=== PATIENT | female | born 1955 | race Caucasian/White ===

== ENCOUNTER → 2020-06-17 | Outpatient (CLI) | payer BC ==
[~2020-06-17] MED LIST: AMLO-186 PO; AMOX1TAB61 PO; ATOR40TA59 PO; BUPR150T21 PO; CETI10TA16 PO; CITA10TA8 PO; OXYC1TAB15 PO; PANT40TA77 PO
--- NOTE | 2020-06-17 09:50 | KCIC ---
EXAM: Left thumb, 3 views. HISTORY: Cellulitis. Dogbite. COMPARISON: None. FINDINGS: 3 views of the left thumb are obtained. There is no fracture, dislocation or subluxation. T here is mild first carpometacarpal and first interphalangeal joint spurring. There is moderate to sev ere second distal interphalangeal joint spurring with a chronic fragmented osteophyte along the slaughter r aspect of the joint space. There is moderate fifth distal individual joint spurring. There is some soft tissue swelling. No foreign body is seen. IMPRESSION: 1. Left thumb soft tissue swelling. No foreign body or acute osseous finding is seen. 2. 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 Electronically signed by: Agustina Siu MD (06/17/2020 9:47 AM) [id number]
== END ==
LOC: KCIC 09:27
PROVIDERS: ATTEND Family Medicine
DX: M19.042 Primary osteoarthritis, left hand (principal); L03.012 Cellulitis of left finger
CPT/HCPCS: 73140

== ENCOUNTER 2020-06-18 09:06 | Inpatient (IN) | payer BC, MEDICARE ==
[~2020-06-18] VITALS: Ht 157.5 cm; Wt 59.0 kg
[2020-06-18] MEDS ORDERED: PIPERACILLIN/TAZOBACTAM 3.375 GM in IV NORMAL SALINE 50ML 50 ML IV ONE (11:45)
--- NOTE | 2020-06-18 12:28 | ED.ADGEN ---
Past Medical History Past Medical History: Anxiety, Diabetes-Type II, Hypertension Additional Past Medical Histor: elevated cholesterol Past Surgical History: Cancer Surgery, Hysterectomy Additional Past Surgical Histo: breast surgery for cancer Smoking Status: Never Smoker Alcohol Use: None General Adult EDM: Chief Complaint: ANIMAL BITE HPI: HPI: Patient is a 64-year-old female who presents to the emergency room complaining of infection to her left thumb. Patient was bitten by a dog last Wednesday. At that time she was started on clindamycin. Since that time she has received 3 shots of Rocephin. She continues to have significant swelling and redness. She denies any known fever. She is able to move the thumb but it is difficult due to swelling and pain. Tetanus was updated. Patient was seen in clinic this morning who sent her here for admission. Review of Systems: Review of Systems: Complete ROS is negative unless otherwise documented in HPI Current Medications: Current Medications Medications (Trade) Dose Ordered Sig/Bnoy Start Time Stop Time Status Last Admin Dose Admin Piperacillin Sod/ Tazobactam Sod 3.375 gm/Sodium Chloride 50 ml @ 100 mls/hr 1X ONCE 06/18/20 11:45 06/18/20 12:39 DC 06/18/20 12:53 100 MLS/HR Allergies: Allergies: Allergies Coded Allergies Type Severity Reaction Last Updated Verified No Known Drug Allergies 06/18/20 No Physical Exam: PE: General: Awake, alert, NAD. Well Nourished, well hydrated. Cooperative HEENT: Atraumatic, EOMI, PERRL, airway patent, moist oral mucosa Neck: Supple, trachea midline Respiratory: CTA bilaterally, normal effort, no wheezing/crackles CV: RRR, no murmur, cap refill <2 GI: Soft, nondistended, nontender, no masses MSK: Left hand: Thumb with small wound and surrounding erythema and significant swelling, no flexor tendon tenderness, streaking up hand and wrist Skin: Warm, dry, intact Neuro: A&O x3, speech NL, sensory and motor grossly intact, no focal deficits Psych: Normal affect, normal mood, not suicidal or homicidal Current Patient Data: Labs: Laboratory Tests Test 06/18/20 12:45 White Blood Count 7.5 x10^3/uL (4.0-11.0) Red Blood Count 4.03 x10^6/uL (3.50-5.40) Hemoglobin 12.2 g/dL (12.0-15.5) Hematocrit 36.4 % (36.0-47.0) Mean Corpuscular Volume 90 fL (79-100) Mean Corpuscular Hemoglobin 30 pg (25-35) Mean Corpuscular Hemoglobin Concent 33 g/dL (31-37) Red Cell Distribution Width 12.9 % (11.5-14.5) Platelet Count 349 x10^3/uL (140-400) Neutrophils (%) (Auto) 70 % (31-73) Lymphocytes (%) (Auto) 20 % (24-48) L Monocytes (%) (Auto) 5 % (0-9) Eosinophils (%) (Auto) 4 % (0-3) H Basophils (%) (Auto) 1 % (0-3) Neutrophils # (Auto) 5.3 x10^3/uL (1.8-7.7) Lymphocytes # (Auto) 1.5 x10^3/uL (1.0-4.8) Monocytes # (Auto) 0.4 x10^3/uL (0.0-1.1) Eosinophils # (Auto) 0.3 x10^3/uL (0.0-0.7) Basophils # (Auto) 0.0 x10^3/uL (0.0-0.2) Sodium Level 141 mmol/L (136-145) Potassium Level 3.8 mmol/L (3.5-5.1) Chloride Level 104 mmol/L (98-107) Carbon Dioxide Level 27 mmol/L (21-32) Anion Gap 10 (6-14) Blood Urea Nitrogen 10 mg/dL (7-20) Creatinine 0.8 mg/dL (0.6-1.0) Estimated GFR (Cockcroft-Gault) 72.0 BUN/Creatinine Ratio 13 (6-20) Glucose Level 106 mg/dL (70-99) H Calcium Level 9.3 mg/dL (8.5-10.1) Total Bilirubin 0.7 mg/dL (0.2-1.0) Aspartate Amino Transferase (AST) 25 U/L (15-37) Alanine Aminotransferase (ALT) 42 U/L (14-59) Alkaline Phosphatase 76 U/L (46-116) C-Reactive Protein, Quantitative 96.3 mg/L (0-3.3) H Total Protein 7.2 g/dL (6.4-8.2) Albumin 3.7 g/dL (3.4-5.0) Albumin/Globulin Ratio 1.1 (1.0-1.7) Laboratory Tests 06/18/20 12:45 Laboratory Tests 06/18/20 12:45 Vital Signs: Vital Signs Date Time Temp Pulse Resp B/P (MAP) Pulse Ox O2 Delivery O2 Flow Rate FiO2 06/18/20 13:30 88 20 141/89 (106) 100 Room Air 06/18/20 11:47 97.8 97.8 EKG: EKG: [] Heart Score: Risk Factors: Risk Factors: DM, Current or recent (<one month) smoker, HTN, HLP, family history of CAD, obesity. Risk Scores: Score 0 - 3: 2.5% MACE over next 6 weeks - Discharge Home Score 4 - 6: 20.3% MACE over next 6 weeks - Admit for Clinical Observation Score 7 - 10: 72.7% MACE over next 6 weeks - Early Invasive Strategies Radiology/Procedures: Radiology/Procedures: [] Course & Med Decision Making: Course & Med Decision Making Pertinent Labs and Imaging studies reviewed. (See chart for details) Patient 64-year-old female presents to the emergency room with a finger infection from a dog bite. Tetanus was updated and patient has been being treated with outpatient antibiotics which have been unsuccessful. Dr. Gracia the on-call orthopedic surgeon will be consulted. Patient will be placed on Zosyn. She will need admission for IV antibiotics and possible drainage. Dragon Disclaimer: Dragon Disclaimer: This electronic medical record was generated, in whole or in part, using a voice recognition dictation system. Departure Departure Impression: Primary Impression: Dog bite of left thumb with infection Disposition: ADMITTED INPT THIS HOSP Condition: STABLE Referrals: UNKNOWN PCP NAME (PCP) NUBIA FERNANDEZ MD Jun 18, 2020 12:28
[2020-06-18 13:04] LABS: BASO % 1 % (0-3); EOS # 0.3 x10^3/uL (0.0-0.7); EOS % 4 % (0-3); HEMATOCRIT 36.4 % (36.0-47.0); HEMOGLOBIN 12.2 g/dL (12.0-15.5); LYMPH # 1.5 x10^3/uL (1.0-4.8); LYMPH % 20 % (24-48); MEAN CORPUSCULAR HEMOGLOBIN 30 pg (25-35); MEAN CORPUSCULAR HGB CONC 33 g/dL (31-37); MEAN CORPUSCULAR VOLUME 90 fL (79-100); MONO # 0.4 x10^3/uL (0.0-1.1); MONO % 5 % (0-9); NEUT # 5.3 x10^3/uL (1.8-7.7); NEUT % 70 % (31-73); PLATELET COUNT 349 x10^3/uL (140-400); RED BLOOD COUNT 4.03 x10^6/uL (3.50-5.40); RED CELL DISTRIBUTION WIDTH 12.9 % (11.5-14.5); WHITE BLOOD COUNT 7.5 x10^3/uL (4.0-11.0)
[2020-06-18 13:14] LABS: CALCIUM 9.3 mg/dL (8.5-10.1); CREATININE 0.8 mg/dL (0.6-1.0)
[2020-06-18 13:15] LABS: POTASSIUM 3.8 mmol/L (3.5-5.1)
[2020-06-18 13:21] LABS: ALBUMIN 3.7 g/dL (3.4-5.0); ALBUMIN/GLOBULIN RATIO 1.1 (1.0-1.7); TOTAL BILIRUBIN 0.7 mg/dL (0.2-1.0); TOTAL PROTEIN 7.2 g/dL (6.4-8.2)
--- NOTE | 2020-06-18 13:55 | PDOC1 ---
History and Physical Date of Admission Date of Admission DATE: 06/18/20 TIME: 13:53 Identification/Chief Complaint Chief Complaint Left thumb pain Source Source: Patient History of Present Illness History of Present Illness Ms Gibbons is a 64-year-old female w/ PMHx anxiety, DM2, HTN, HLD, breast ca s/p surgical resection who presents to the emergency room complaining of infection to her left thumb. Patient was bitten by a dog last Wednesday06/14/20. At that time she was started on clindamycin. Since that time she has received 3 shots of Rocephin while taking clindamycin. She continues to have significant swelling and redness. She denies any known fever. She is able to move the thumb but it is difficult due to swelling and pain. Tetanus was updated. Patient was seen in clinic this morning who sent her here for admission. WBC 7.5, Hb 12.2, platelets 349, NA 141, K3.8, BUN 10, CR 0.8, glucose 106, CRP 96.3. Admitted for further care Past Medical History Cardiovascular: HTN, Hyperlipidemia Endocrine: Diabetes Past Surgical History Past Surgical History: Other (Lumpectomy) Family History Family History: Diabetes, Hypertension Social History Smoke: No ALCOHOL: none Current Problem List Problem List Problems Medical Problems: (1) Dog bite of left thumb with infection Status: Acute Current Medications Current Medications Current Medications Piperacillin Sod/ Tazobactam Sod 3.375 gm/Sodium Chloride 50 ml @ 100 mls/hr 1X ONCE IV Last administered on 06/18/20at 12:53; Start 06/18/20 at 11:45; Stop 06/18/20 at 12:39; Status DC Allergies Allergies: Coded Allergies: No Known Drug Allergies (Unverified , 06/18/20) ROS General: YES: Fatigue, Malaise; No: Chills, Night Sweats, Appetite, Other PSYCHOLOGICAL ROS: No: Anxiety, Behavioral Disorder, Concentration difficultie, Decreased libido, Depression, Disorientation, Hallucinations, Hostility, Irritablity, Memory difficulties, Mood Swings, Obsessive thoughts, Physical abuse, Sexual abuse, Sleep disturbances, Suicidal ideation, Other Eyes: No Blurry vision, No Decreased vision, No Double vision, No Dry eyes, No Excessive tearing, No Eye Pain, No Itchy Eyes, No Loss of vision, No Photophobia, No Scotomata, No Uses contacts, No Uses glasses, No Other HEENT: No: Heacaches, Visual Changes, Hearing change, Nasal congestion, Nasal discharge, Oral lesions, Sinus pain, Sore Throat, Epistaxis, Sneezing, Snoring, Tinnitus, Vertigo, Vocal changes, Other ALLERGY AND IMMUNOLOGY: No: Hives, Insect Bite Sensitivity, Itchy/Watery Eyes, Nasal Congestion, Post Nasal Drip, Seasonal Allergies, Other Hematological and Lymphatic: No: Bleeding Problems, Blood Clots, Blood Transfusions, Brusing, Night Sweats, Pallor, Swollen Lymph Nodes, Other ENDOCRINE: No: Breast Changes, Galactorrhea, Hair Pattern Changes, Hot Flashes, Malaise/lethargy, Mood Swings, Palpitations, Polydipsia/polyuria, Skin Changes, Temperature Intolerance, Unexpected Weight Changes, Other Breast: No New/Changing Breast Lumps, No Nipple changes, No Nipple discharge, No Other Respiratory: No: Cough, Hemoptysis, Orthopnea, Pleuritic Pain, Shortness of breath, SOB with excertion, Sputum Changes, Stridor, Tachypnea, Wheezing, Other Cardiovascular: No Chest Pain, No Palpitations, No Orthopnea, No Paroxysmal Noc. Dyspnea, No Edema, No Lt Headedness, No Other Gastrointestinal: No Nausea, No Vomiting, No Abdominal Pain, No Diarrhea, No Constipation, No Melena, No Hematochezia, No Other Genitourinary: No Dysuria, No Frequency, No Incontinence, No Hematuria, No Retention, No Discharge, No Urgency, No Pain, No Flank Pain, No Other, No , No , No , No , No , No , No Musculoskeletal: Yes Joint Pain, Yes Joint Stiffness, Yes Joint Swelling; No Gait Disturbance, No Muscle Pain, No Muscular Weakness, No Pain In:, No Swelling In:, No Other Neurological: No Behavorial Changes, No Bowel/Bladder ControlChng, No Confusion, No Dizziness, No Gait Disturbance, No Headaches, No Impaired Coord/balance, No Memory Loss, No Numbness/Tingling, No Seizures, No Speech Problems, No Tremors, No Visual Changes, No Weakness, No Other Skin: Yes Rash, Yes Skin Lesion Changes; No Dry Skin, No Eczema, No Hair Changes, No Lumps, No Mole Changes, No Mottling, No Nail Changes, No Pruritus, No Other, No Acne Physical Exam General: Alert, Oriented X3, Cooperative, mild distress HEENT: Atraumatic, PERRLA, EOMI, Mucous membr. moist/pink Lungs: Clear to auscultation, Normal air movement Heart: S1S2, RRR, no thrills, no rubs, no gallops, no murmurs Abdomen: Normal bowel sounds, Soft, No tenderness, No hepatosplenomegaly, No masses Rectal Exam: not examined Extremities: No clubbing, No cyanosis, Normal pulses, Other (left thumb swollen, red, dorsum with lesion) Skin: No rashes, No breakdown, No significant lesion Neuro: Normal gait, Normal speech, Strength at 5/5 X4 ext, Normal tone, Sensation intact, Cranial nerves 3-12 NL, Reflexes 2+ Psych/Mental Status: Mental status NL, Mood NL Vitals Vitals Vital Signs Date Time Temp Pulse Resp B/P (MAP) Pulse Ox O2 Delivery O2 Flow Rate FiO2 06/18/20 11:47 97.8 92 16 159/72 (101) Room Air 97.8 Labs Labs Laboratory Tests Test 06/18/20 12:45 White Blood Count 7.5 x10^3/uL (4.0-11.0) Red Blood Count 4.03 x10^6/uL (3.50-5.40) Hemoglobin 12.2 g/dL (12.0-15.5) Hematocrit 36.4 % (36.0-47.0) Mean Corpuscular Volume 90 fL (79-100) Mean Corpuscular Hemoglobin 30 pg (25-35) Mean Corpuscular Hemoglobin Concent 33 g/dL (31-37) Red Cell Distribution Width 12.9 % (11.5-14.5) Platelet Count 349 x10^3/uL (140-400) Neutrophils (%) (Auto) 70 % (31-73) Lymphocytes (%) (Auto) 20 % (24-48) Monocytes (%) (Auto) 5 % (0-9) Eosinophils (%) (Auto) 4 % (0-3) Basophils (%) (Auto) 1 % (0-3) Neutrophils # (Auto) 5.3 x10^3/uL (1.8-7.7) Lymphocytes # (Auto) 1.5 x10^3/uL (1.0-4.8) Monocytes # (Auto) 0.4 x10^3/uL (0.0-1.1) Eosinophils # (Auto) 0.3 x10^3/uL (0.0-0.7) Basophils # (Auto) 0.0 x10^3/uL (0.0-0.2) Sodium Level 141 mmol/L (136-145) Potassium Level 3.8 mmol/L (3.5-5.1) Chloride Level 104 mmol/L (98-107) Carbon Dioxide Level 27 mmol/L (21-32) Anion Gap 10 (6-14) Blood Urea Nitrogen 10 mg/dL (7-20) Creatinine 0.8 mg/dL (0.6-1.0) Estimated GFR (Cockcroft-Gault) 72.0 BUN/Creatinine Ratio 13 (6-20) Glucose Level 106 mg/dL (70-99) Calcium Level 9.3 mg/dL (8.5-10.1) Total Bilirubin 0.7 mg/dL (0.2-1.0) Aspartate Amino Transf (AST/SGOT) 25 U/L (15-37) Alanine Aminotransferase (ALT/SGPT) 42 U/L (14-59) Alkaline Phosphatase 76 U/L (46-116) C-Reactive Protein, Quantitative 96.3 mg/L (0-3.3) Total Protein 7.2 g/dL (6.4-8.2) Albumin 3.7 g/dL (3.4-5.0) Albumin/Globulin Ratio 1.1 (1.0-1.7) Laboratory Tests Test 06/18/20 12:45 White Blood Count 7.5 x10^3/uL (4.0-11.0) Red Blood Count 4.03 x10^6/uL (3.50-5.40) Hemoglobin 12.2 g/dL (12.0-15.5) Hematocrit 36.4 % (36.0-47.0) Mean Corpuscular Volume 90 fL (79-100) Mean Corpuscular Hemoglobin 30 pg (25-35) Mean Corpuscular Hemoglobin Concent 33 g/dL (31-37) Red Cell Distribution Width 12.9 % (11.5-14.5) Platelet Count 349 x10^3/uL (140-400) Neutrophils (%) (Auto) 70 % (31-73) Lymphocytes (%) (Auto) 20 % (24-48) Monocytes (%) (Auto) 5 % (0-9) Eosinophils (%) (Auto) 4 % (0-3) Basophils (%) (Auto) 1 % (0-3) Neutrophils # (Auto) 5.3 x10^3/uL (1.8-7.7) Lymphocytes # (Auto) 1.5 x10^3/uL (1.0-4.8) Monocytes # (Auto) 0.4 x10^3/uL (0.0-1.1) Eosinophils # (Auto) 0.3 x10^3/uL (0.0-0.7) Basophils # (Auto) 0.0 x10^3/uL (0.0-0.2) Sodium Level 141 mmol/L (136-145) Potassium Level 3.8 mmol/L (3.5-5.1) Chloride Level 104 mmol/L (98-107) Carbon Dioxide Level 27 mmol/L (21-32) Anion Gap 10 (6-14) Blood Urea Nitrogen 10 mg/dL (7-20) Creatinine 0.8 mg/dL (0.6-1.0) Estimated GFR (Cockcroft-Gault) 72.0 BUN/Creatinine Ratio 13 (6-20) Glucose Level 106 mg/dL (70-99) Calcium Level 9.3 mg/dL (8.5-10.1) Total Bilirubin 0.7 mg/dL (0.2-1.0) Aspartate Amino Transf (AST/SGOT) 25 U/L (15-37) Alanine Aminotransferase (ALT/SGPT) 42 U/L (14-59) Alkaline Phosphatase 76 U/L (46-116) C-Reactive Protein, Quantitative 96.3 mg/L (0-3.3) Total Protein 7.2 g/dL (6.4-8.2) Albumin 3.7 g/dL (3.4-5.0) Albumin/Globulin Ratio 1.1 (1.0-1.7) Images Images Left finger XR: FINDINGS: 3 views of the left thumb are obtained. There is no fracture, dislocation or subluxation. There is mild first carpometacarpal and first interphalangeal joint spurring. There is moderate to severe second distal interphalangeal joint spurring with a chronic fragmented osteophyte along the palmar aspect of the joint space. There is moderate fifth distal individual joint spurring. There is some soft tissue swelling. No foreign body is seen. IMPRESSION: 1. Left thumb soft tissue swelling. No foreign body or acute osseous finding is seen. 2. 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 VTE Prophylaxis Ordered VTE Prophylaxis Devices: No VTE Pharmacological Prophylaxi: Yes Assessment/Plan Assessment/Plan A/P: Left thumb cellulitis - failed outpatient therapy. Will change to zosyn. Add vancomycin for possible MRSA coverage given failure for typical treatment for dog bite. Ortho consulted for I&D consideration Dog bite - UTD on vaccinations, patient had tetanus. Local wound care. Anxiety - prn lorazepam DM2 - sliding scale HTN - resume home meds HLD - resume home meds Breast ca s/p surgical resection FEN - NPO PPX - lovenox FULL CODE Dispo - inpatient Justifications for Admission Other Justification SHANNON SIDDIQI MD Jun 18, 2020 13:55
[2020-06-18] MEDS ORDERED: PIP/TAZO PER PHARMACY MC PRN (14:00)
[2020-06-18] MEDS ORDERED: ACETAMINOPHEN 325 MG TABLET. PO PRN (14:00)
[2020-06-18] MEDS ORDERED: ONDANSETRON PF 4 MG/2 ML VIAL. IV PRN (14:00)
[2020-06-18] MEDS ORDERED: ZOLPIDEM 5 MG TABLET. PO PRN (14:00)
[2020-06-18 15:00] VITALS: BP 144/78
[2020-06-18] MEDS ORDERED: traMADol 50 MG TABLET PO PRN (15:30)
[2020-06-18] MEDS: IV NORMAL SALINE 1000ML BAG 1,000 ML IV SCH ×2 (15:42→23:51)
[2020-06-18] MEDS ORDERED: LORazepam 0.5 MG TABLET PO PRN (15:45)
[2020-06-18] MEDS ORDERED: DEXTROSE 50% 25 GM / 50ML DISP.SYRIN. IV PRN (15:45)
[2020-06-18] MEDS ORDERED: VANCOMYCIN 1.5 GM in IV NORMAL SALINE 500ML BAG 500 ML IV ONE (16:00)
[2020-06-18] MEDS: INSULIN LISPRO 300 UNITS/3 ML VIAL. SQ SCH (16:48)
--- NOTE | 2020-06-18 18:53 | PDOC2 ---
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 Patient was bitten by a dog last Wednesday. At that time she was started on clindamycin. Since that time she has received 3 shots of Rocephin. She continues to have significant swelling and redness. She denies any known fever. She is able to move the thumb but it is difficult due to swelling and pain. Tetanus was updated. The patient presented to the emergency room and was admitted. Orthopedics was consulted. She is now on scheduled intravenous antibiotics. Past Medical History Cardiovascular: HTN, Hyperlipidemia Endocrine: Diabetes Past Surgical History Past Surgical History: Other (Lumpectomy) Family History Family History: Diabetes, Hypertension Social History No ALCOHOL: none Current Problem List Problem List Problems Medical Problems: (1) Dog bite of left thumb with infection Status: Acute Current Medications Current Medications Current Medications Piperacillin Sod/ Tazobactam Sod 3.375 gm/Sodium Chloride 50 ml @ 100 mls/hr 1X ONCE IV Last administered on 06/18/20at 12:53; Start 06/18/20 at 11:45; Stop 06/18/20 at 12:39; Status DC Psyllium Hydrophilic Mucilloid (Metamucil Fiber Packet) 1 pkt QHS PO ; Start 06/18/20 at 21:00 Sodium Chloride 1,000 ml @ 100 mls/hr Q10H IV Last administered on 06/18/20at 15:42; Start 06/18/20 at 14:00 Ondansetron HCl (Zofran) 4 mg PRN Q4HRS PRN IV NAUSEA/VOMITING; Start 06/18/20 at 14:00 Zolpidem Tartrate (Ambien) 5 mg PRN QHS PRN PO INSOMNIA; Start 06/18/20 at 14:00 Acetaminophen (Tylenol) 650 mg PRN Q4HRS PRN PO TEMP OVER 100.4F OR MILD PAIN; Start 06/18/20 at 14:00 Enoxaparin Sodium (Lovenox 40mg Syringe) 40 mg Q24H SQ ; Start 06/18/20 at 21:00 Piperacillin Sod/ Tazobactam Sod (Zosyn Per Pharmacy) 1 each PRN DAILY PRN MC SEE COMMENTS; Start 06/18/20 at 14:00 Piperacillin Sod/ Tazobactam Sod 3.375 gm/Sodium Chloride 50 ml @ 100 mls/hr Q6HRS IV ; Start 06/18/20 at 18:00 Vancomycin HCl 1.5 gm/Sodium Chloride 500 ml @ 250 mls/hr 1X ONCE IV Last administered on 06/18/20at 16:00; Start 06/18/20 at 16:00; Stop 06/18/20 at 17:59; Status DC Tramadol HCl (Ultram) 50 mg PRN Q6HRS PRN PO MODERATE PAIN; Start 06/18/20 at 1 5:30 Fentanyl Citrate (Fentanyl 2ml Vial) 50 mcg PRN Q2HR PRN IVP SEVERE PAIN; Start 06/18/20 at 15:30 Lorazepam (Ativan) 0.5 mg PRN Q8HRS PRN PO ANXIETY / AGITATION; Start 06/18/20 at 15:45 Lorazepam (Ativan Inj) 0.5 mg PRN Q4HRS PRN IVP ANXIETY / AGITATION; Start 06/18/20 at 15:45 Insulin Human Lispro (HumaLOG) 0-9 UNITS TIDWMEALS SQ ; Start 06/18/20 at 17:00 Dextrose (Dextrose 50%-Water Syringe) 12.5 gm PRN Q15MIN PRN IV SEE COMMENTS; Start 06/18/20 at 15:45 Allergies Allergies: Coded Allergies: No Known Drug Allergies (Unverified , 06/18/20) ROS Review of System General: YES: Fatigue, Malaise; No: Chills, Night Sweats, Appetite, Other PSYCHOLOGICAL ROS: No: Anxiety, Behavioral Disorder, Concentration difficultie, Decreased libido, Depression, Disorientation, Hallucinations, Hostility, Irritablity, Memory difficulties, Mood Swings, Obsessive thoughts, Physical abuse, Sexual abuse, Sleep disturbances, Suicidal ideation, Other Eyes: No Blurry vision, No Decreased vision, No Double vision, No Dry eyes, No Excessive tearing, No Eye Pain, No Itchy Eyes, No Loss of vision, No Photophobia, No Scotomata, No Uses contacts, No Uses glasses, No Other HEENT: No: Heacaches, Visual Changes, Hearing change, Nasal congestion, Nasal discharge, Oral lesions, Sinus pain, Sore Throat, Epistaxis, Sneezing, Snoring, Tinnitus, Vertigo, Vocal changes, Other ALLERGY AND IMMUNOLOGY: No: Hives, Insect Bite Sensitivity, Itchy/Watery Eyes, Nasal Congestion, Post Nasal Drip, Seasonal Allergies, Other Hematological and Lymphatic: No: Bleeding Problems, Blood Clots, Blood Transfusions, Brusing, Night Sweats, Pallor, Swollen Lymph Nodes, Other ENDOCRINE: No: Breast Changes, Galactorrhea, Hair Pattern Changes, Hot Flashes, Malaise/lethargy, Mood Swings, Palpitations, Polydipsia/polyuria, Skin Changes, Temperature Intolerance, Unexpected Weight Changes, Other Breast: No New/Changing Breast Lumps, No Nipple changes, No Nipple discharge, No Other Respiratory: No: Cough, Hemoptysis, Orthopnea, Pleuritic Pain, Shortness of breath, SOB with excertion, Sputum Changes, Stridor, Tachypnea, Wheezing, Other Cardiovascular: No Chest Pain, No Palpitations, No Orthopnea, No Paroxysmal Noc. Dyspnea, No Edema, No Lt Headedness, No Other Gastrointestinal: No Nausea, No Vomiting, No Abdominal Pain, No Diarrhea, No Constipation, No Melena, No Hematochezia, No Other Genitourinary: No Dysuria, No Frequency, No Incontinence, No Hematuria, No Retention, No Discharge, No Urgency, No Pain, No Flank Pain, No Other, No , No , No , No , No , No , No Musculoskeletal: Yes Joint Pain, Yes Joint Stiffness, Yes Joint Swelling; No Gait Disturbance, No Muscle Pain, No Muscular Weakness, No Pain In:, No Swelling In:, No Other Neurological: No Behavorial Changes, No Bowel/Bladder ControlChng, No Confusion, No Dizziness, No Gait Disturbance, No Headaches, No Impaired Co ord/balance, No Memory Loss, No Numbness/Tingling, No Seizures, No Speech Problems, No Tremors, No Visual Changes, No Weakness, No Other Skin: Yes Rash, Yes Skin Lesion Changes; No Dry Skin, No Eczema, No Hair Changes, No Lumps, No Mole Changes, No [place] ling, No Nail Changes, No Pruritus, No Other, No Acne Physical Exam General: Alert, Cooperative HEENT: Atraumatic Lungs: Normal air movement Heart: Regular rate Abdomen: Soft Extremities: Other (The left thumb has some resolving puncture type bite wounds over the dorsum mostly over the interphalangeal joint. There is intense erythema, slight circumferential swelling, pain with motion of the interphalangeal joint. The flexor tendon does not seem particularly tender or showing any localized signs of flexor tenosynovitis. Most of the swelling and inflammation and possible fluid collection is dorsal. Sensation is mildly affected. The patient reports some drainage which she drained previously but there is no active drainage at this time.) Skin: Other (Left thumb as above) Neuro: Normal speech, Normal tone MUSCULOSKELETAL: Abnormal exam of left (Thumb as above) Vitals VITALS Vital Signs Date Time Temp Pulse Resp B/P (MAP) Pulse Ox O2 Delivery O2 Flow Rate FiO2 06/18/20 16:05 Room Air 06/18/20 15:00 98.2 84 16 144/78 (100) 96 98.2 Labs Labs Laboratory Tests Test 06/18/20 12:45 06/18/20 14:18 06/18/20 16:37 White Blood Count 7.5 x10^3/uL (4.0-11.0) Red Blood Count 4.03 x10^6/uL (3.50-5.40) Hemoglobin 12.2 g/dL (12.0-15.5) Hematocrit 36.4 % (36.0-47.0) Mean Corpuscular Volume 90 fL (79-100) Mean Corpuscular Hemoglobin 30 pg (25-35) Mean Corpuscular Hemoglobin Concent 33 g/dL (31-37) Red Cell Distribution Width 12.9 % (11.5-14.5) Platelet Count 349 x10^3/uL (140-400) Neutrophils (%) (Auto) 70 % (31-73) Lymphocytes (%) (Auto) 20 % (24-48) Monocytes (%) (Auto) 5 % (0-9) Eosinophils (%) (Auto) 4 % (0-3) Basophils (%) (Auto) 1 % (0-3) Neutrophils # (Auto) 5.3 x10^3/uL (1.8-7.7) Lymphocytes # (Auto) 1.5 x10^3/uL (1.0-4.8) Monocytes # (Auto) 0.4 x10^3/uL (0.0-1.1) Eosinophils # (Auto) 0.3 x10^3/uL (0.0-0.7) Basophils # (Auto) 0.0 x10^3/uL (0.0-0.2) Sodium Level 141 mmol/L (136-145) Potassium Level 3.8 mmol/L (3.5-5.1) Chloride Level 104 mmol/L (98-107) Carbon Dioxide Level 27 mmol/L (21-32) Anion Gap 10 (6-14) Blood Urea Nitrogen 10 mg/dL (7-20) Creatinine 0.8 mg/dL (0.6-1.0) Estimated GFR (Cockcroft-Gault) 72.0 BUN/Creatinine Ratio 13 (6-20) Glucose Level 106 mg/dL (70-99) Calcium Level 9.3 mg/dL (8.5-10.1) Total Bilirubin 0.7 mg/dL (0.2-1.0) Aspartate Amino Transf (AST/SGOT) 25 U/L (15-37) Alanine Aminotransferase (ALT/SGPT) 42 U/L (14-59) Alkaline Phosphatase 76 U/L (46-116) C-Reactive Protein, Quantitative 96.3 mg/L (0-3.3) Total Protein 7.2 g/dL (6.4-8.2) Albumin 3.7 g/dL (3.4-5.0) Albumin/Globulin Ratio 1.1 (1.0-1.7) SARS-CoV-2 Antigen (Rapid) Negative (NEGATIVE) Glucose (Fingerstick) 96 mg/dL (70-99) Laboratory Tests Test 06/18/20 12:45 06/18/20 14:18 06/18/20 16:37 White Blood Count 7.5 x10^3/uL (4.0-11.0) Red Blood Count 4.03 x10^6/uL (3.50-5.40) Hemoglobin 12.2 g/dL (12.0-15.5) Hematocrit 36.4 % (36.0-47.0) Mean Corpuscular Volume 90 fL (79-100) Mean Corpuscular Hemoglobin 30 pg (25-35) Mean Corpuscular Hemoglobin Concent 33 g/dL (31-37) Red Cell Distribution Width 12.9 % (11.5-14.5) Platelet Count 349 x10^3/uL (140-400) Neutrophils (%) (Auto) 70 % (31-73) Lymphocytes (%) (Auto) 20 % (24-48) Monocytes (%) (Auto) 5 % (0-9) Eosinophils (%) (Auto) 4 % (0-3) Basophils (%) (Auto) 1 % (0-3) Neutrophils # (Auto) 5.3 x10^3/uL (1.8-7.7) Lymphocytes # (Auto) 1.5 x10^3/uL (1.0-4.8) Monocytes # (Auto) 0.4 x10^3/uL (0.0-1.1) Eosinophils # (Auto) 0.3 x10^3/uL (0.0-0.7) Basophils # (Auto) 0.0 x10^3/uL (0.0-0.2) Sodium Level 141 mmol/L (136-145) Potassium Level 3.8 mmol/L (3.5-5.1) Chloride Level 104 mmol/L (98-107) Carbon Dioxide Level 27 mmol/L (21-32) Anion Gap 10 (6-14) Blood Urea Nitrogen 10 mg/dL (7-20) Creatinine 0.8 mg/dL (0.6-1.0) Estimated GFR (Cockcroft-Gault) 72.0 BUN/Creatinine Ratio 13 (6-20) Glucose Level 106 mg/dL (70-99) Calcium Level 9.3 mg/dL (8.5-10.1) Total Bilirubin 0.7 mg/dL (0.2-1.0) Aspartate Amino Transf (AST/SGOT) 25 U/L (15-37) Alanine Aminotransferase (ALT/SGPT) 42 U/L (14-59) Alkaline Phosphatase 76 U/L (46-116) C-Reactive Protein, Quantitative 96.3 mg/L (0-3.3) Total Protein 7.2 g/dL (6.4-8.2) Albumin 3.7 g/dL (3.4-5.0) Albumin/Globulin Ratio 1.1 (1.0-1.7) SARS-CoV-2 Antigen (Rapid) Negative (NEGATIVE) Glucose (Fingerstick) 96 mg/dL (70-99) Images Images Report reviewed and images independently reviewed. Significant soft tissue swelling of the thumb. No apparent bony involvement. [facility] [address] [place] [address] IMAGING REPORT Signed PATIENT: ARACELIS MICHELE ACCOUNT: [id number] : 1955 LOCATION: [facility] AGE: 64 SEX: F EXAM STATUS: REG CLI ORD. PHYSICIAN: CHRIS GONZALEZ REASON: AP/LATERAL LEFT THUMB FOR CELLULITIS PROCEDURE: FINGER(S) LEFT EXAM: Left thumb, 3 views. HISTORY: Cellulitis. Dogbite. COMPARISON: None. FINDINGS: 3 views of the left thumb are obtained. There is no fracture, dislocation or subluxation. There is mild first carpometacarpal and first interphalangeal joint spurring. There is moderate to severe second distal interphalangeal joint spurring with a chronic fragmented osteophyte along the palmar aspect of the joint space. There is moderate fifth distal individual joint spurring. There is some soft tissue swelling. No foreign body is seen. IMPRESSION: 1. Left thumb soft tissue swelling. No foreign body or acute osseous finding is seen. 2. 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 Electronically signed by: Agustina Donohue MD (06/17/2020 9:47 AM) [id number] DICTATED and SIGNED BY: AGUSTINA DONOHUE MD DATE: 06/17/20 0945 Assessment/Plan Assessment/Plan Thumb abscess. I will plan surgical incision and drainage. Most of the infection appears dorsal, and I described dorsolateral or midaxial incision. I explained that if there is any flexor tendon involvement I would need to make Carlos type incisions and described those to her, but hopefully all of the infection is dorsal. There could be interphalangeal joint involvement based on tenderness of the joint on examination. I would perform arthrotomy and irrigation if infection is present in the joint. We discussed the potential risk such as sensory nerve dysfunction with possible temporary or permanent numbness on one or both sides of the thumb, stiffness, pain, recurrent infection, scarring, or other potential surgical or anesthetic complications. All of her questions about surgery were answered and she desires to proceed. ANDREW DUGGAN MD Jun 18, 2020 18:53
[2020-06-18] MEDS: PIPERACILLIN/TAZOBACTAM 3.375 GM in IV NORMAL SALINE 50ML 50 ML IV SCH ×2 (19:20→23:51)
[2020-06-18 19:35] VITALS: BP 134/62
[2020-06-18] MEDS: fentaNYL PF VIAL 100 MCG/2 ML VIAL IVP PRN (19:42)
[2020-06-18] MEDS: CETIRIZINE HCL 10 MG TABLET. PO SCH (20:34)
[2020-06-18] MEDS: PSYLLIUM HUSK (SUGAR FREE) 1 PKT PACKET PO SCH (20:34)
[2020-06-18] MEDS: ENOXAPARIN 40 MG/0.4 ML SYRINGE. SQ SCH (20:35)
[2020-06-18 23:42] VITALS: BP 148/53
[2020-06-19 03:20] VITALS: BP 119/59
[2020-06-19] MEDS: PIPERACILLIN/TAZOBACTAM 3.375 GM in IV NORMAL SALINE 50ML 50 ML IV SCH ×4 (05:54→23:54)
[2020-06-19] MEDS: fentaNYL PF VIAL 100 MCG/2 ML VIAL IVP PRN (06:36)
[2020-06-19 07:00] VITALS: BP 150/70
[2020-06-19] MEDS ORDERED: BUPIVACAINE-EPI 0.25%-1:200000 MPF 30 ML VIAL. INJ ONE (07:30)
[2020-06-19] MEDS: INSULIN LISPRO 300 UNITS/3 ML VIAL. SQ SCH ×3 (08:00→17:43)
[2020-06-19] MEDS: IV RINGERS,LACTATED 1000ML 1,000 ML IV SCH ×2 (09:00→11:52)
[2020-06-19] MEDS ORDERED: SEVOFLURANE 61 TO 120 MINUTES. IH ONE ×2 (09:07→10:45)
[2020-06-19] MEDS ORDERED: fentaNYL PF VIAL 100 MCG/2 ML VIAL ONE ×2 (09:07→10:33)
[2020-06-19] MEDS ORDERED: DEXAMETHASONE SOD PHOS 4 MG/ML VIAL ONE (09:08)
[2020-06-19] MEDS ORDERED: ONDANSETRON PF 4 MG/2 ML VIAL. ONE (09:08)
[2020-06-19] MEDS ORDERED: MIDAZOLAM HCL/PF 2 MG/2 ML VIAL. ONE (09:08)
[2020-06-19] MEDS ORDERED: PROPOFOL 10 MG/ML (20ML) VIAL. IV ONE (09:08)
[2020-06-19] MEDS ORDERED: LIDOCAINE 2% PF 5 ML VIAL. ONE (09:08)
[2020-06-19] MEDS ORDERED: HYDROmorphone 2 MG/ML VIAL IV PRN (10:00)
[2020-06-19] MEDS ORDERED: PROCHLORPERAZINE 10 MG/2 ML VIAL. IV PRN (10:00)
[2020-06-19] MEDS: IV NORMAL SALINE 1000ML BAG 1,000 ML IV SCH ×2 (10:00→20:06)
[2020-06-19] MEDS ORDERED: LIDOCAINE 1% PF 2 ML VIAL. ID PRN (10:00)
[2020-06-19] MEDS ORDERED: MORPHINE SULFATE 2 MG/ML VIAL. IV PRN (10:00)
[2020-06-19] MEDS ORDERED: fentaNYL PF VIAL 100 MCG/2 ML VIAL IV PRN ×2 (10:00)
[2020-06-19] MEDS ORDERED: ONDANSETRON PF 4 MG/2 ML VIAL. IV PRN (10:00)
--- NOTE | 2020-06-19 10:39 | NUR ---
SW following. Discussed with RN, pt from home, room air, NPO, rapid COVID-19 negative, IV abx. Pt having an I&D of finger today. RN advised no SW needs at this time. SW will continue to follow.
--- NOTE | 2020-06-19 10:57 | PDOC4 ---
Operative Note Operative Note Date of Procedure: June 19, 2020 Pre-Op Diagnosis: * Open bite of left hand, initial encounter S61.452A * Direct infection of left hand in infectious and parasitic diseases classified elsewhere M01.X42 (left thumb infection after dog bite) Post-Op Diagnosis: * Open bite of left hand, initial encounter S61.452A * Direct infection of left hand in infectious and parasitic diseases classified elsewhere M01.X42 * Arthritis due to other bacteria, left hand M00.842 (septic joint left thumb interphalangeal joint) Procedure: Arthrotomy with exploration drainage of the left thumb interphalangeal joint for septic joint arthritis of the interphalangeal joint of the left thumb. CPT 26273 Surgeon: Andrew Gracia MD Day Care Supervisor: BRIGIDA Gonzales Anesthesia: General EBL: 10 mL Specimens Obtained: Swab cultures for aerobic and anaerobic taken from the interphalangeal joint Complications: none Drains: none Tourniquet: Left arm, 6 minutes, 250 mmHg Findings: Purulent fluid in the interphalangeal joint. Some extrusion of that pus into the dorsal thumb along the proximal phalanx. All of the purulent fluid was removed either with rongeurs or with irrigation. 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 She was bitten by a dog last Wednesday. At that time she was started on clindamycin. Since that time she has received 3 shots of Rocephin. She continues to have significant swelling and redness. She denies any known fever. She is able to move the thumb but it is difficult due to swelling and pain. Tetanus was updated. The patient presented to the emergency room and was admitted. Orthopedics was consulted. She is now on scheduled intravenous antibiotics. I recommended surgical incision and drainage and described this to her. Most of the infection appears dorsal, and I described dorsolateral or midaxial incision. I explained that if there is any flexor tendon involvement I would need to make Carlos type incisions and described those to her, but hopefully all of the infection is dorsal. There could be interphalangeal joint involvement based on tenderness of the joint on examination. I would perform arthrotomy and irrigation if infection is present in the joint. We discussed the potential risk such as sensory nerve dysfunction with possible temporary or permanent numbness on one or both sides of the thumb, stiffness, pain, recurrent infection, scarring, or other potential surgical or anesthetic complications. All of her questions about surgery were answered and she desires to proceed. Procedure in Detail: The patient was identified in the preoperative holding area. The correct left thumb was marked by me. The patient was taken to the operating room where general anesthetic was used. The patient was positioned supine on the operating table. A tourniquet was applied to the upper portion of the limb. The patient remains on scheduled antibiotics so no addtional antibiotics were given. A timeout procedure was performed. The limb was prepared in sterile fashion with Betadine and sterile drapes were applied. The wrist and forearm were exsanguinated with an Esmarch bandage. The tour niquet was inflated. A dorsal lateral incision was made, slightly off the midline over the proximal phalanx of the thumb and extending onto the interphalangeal joint. There is only slight purulent drainage in the subcutaneous tissues. The interphalangeal joint appears swollen and infected. There is a puncture wound from the dog tooth through the extensor tendon, into the interphalangeal joint. There was a septic joint of the interphalangeal joint. I incised the dorsal capsule, and took cultures of the purulent fluid within the joint. Copious saline irrigation was used. Betadine lavage was used. Additional saline irrigation was used. All of the joint irrigation was performed with a 10 mL syringe and a 20 mL Jelco, to avoid articular injury but to get high-pressure lavage through the joint. The joint was manipulated to make sure all of the purulent fluid was removed. The tourniquet was released. Bovie electrocautery was used carefully for hemostasis. 0.25% bupivacaine with epinephrine was injected into the skin edges and a digital block fashion for additional hemostasis and for pain relief. The incision was closed in a single layer with #3-0 Prolene interrupted sutures. A sterile Xeroform dressing was applied followed by tube gauze. Needle and sponge counts were correct. There were no apparent complications. ANDREW GRACIA MD Jun 19, 2020 10:57
[2020-06-19 12:26] LABS: CALCIUM 9.5 mg/dL (8.5-10.1); CREATININE 0.7 mg/dL (0.6-1.0)
[2020-06-19 15:00] VITALS: BP 148/66
--- NOTE | 2020-06-19 16:03 | PDOC ---
PROGRESS NOTES Date of Service: DATE: 06/19/20 TIME: 15:56 Chief Complaint Chief Complaint A/P: Left thumb abscess - failed outpatient therapy. Continue Zosyn. Vancomycin for possible MRSA coverage given failure for typical treatment for dog bite. Ortho consulted for I&D consideration Failed outpatient therapy Dog bite - UTD on vaccinations, patient had tetanus. Local wound care. Anxiety - prn lorazepam DM2 - sliding scale HTN - resume home meds HLD - resume home meds Breast ca s/p surgical resection FEN - NPO PPX - lovenox FULL CODE Dispo - inpatient History of Present Illness History of Present Illness History of Present Illness Ms Gibbons is a 64-year-old female w/ PMHx anxiety, DM2, HTN, HLD, breast ca s/p surgical resection who presents to the emergency room complaining of infection to her left thumb. Patient was bitten by a dog last Wednesday06/14/20. At that time she was started on clindamycin. Since that time she has received 3 shots of Rocephin while taking clindamycin. She continues to have significant swelling and redness. She denies any known fever. She is able to move the thumb but it is difficult due to swelling and pain. Tetanus was updated. Patient was seen in clinic this morning who sent her here for admission. WBC 7.5, Hb 12.2, platelets 349, NA 141, K3.8, BUN 10, CR 0.8, glucose 106, CRP 96.3. Admitted for further care 06/19: No acute events reported overnight, case discussed with nursing staff patient in no acute distress no complaints during my visit patient with no fever only complaint is pain over the affected finger. She is scheduled to go to the OR later in the day Operative Note Operative Note Date of Procedure: June 19, 2020 Pre-Op Diagnosis: * Open bite of left hand, initial encounter S61.452A * Direct infection of left hand in infectious and parasitic diseases classified elsewhere M01.X42 (left thumb infection after dog bite) Post-Op Diagnosis: * Open bite of left hand, initial encounter S61.452A * Direct infection of left hand in infectious and parasitic diseases classified elsewhere M01.X42 * Arthritis due to other bacteria, left hand M00.842 (septic joint left thumb interphalangeal joint) Procedure: Arthrotomy with exploration drainage of the left thumb interphalangeal joint for septic joint arthritis of the interphalangeal joint of the left thumb. CPT 01996 Surgeon: Gino Gracia MD Psychiatric Tech: BRIGIDA Gonzales Anesthesia: General EBL: 10 mL Specimens Obtained: Swab cultures for aerobic and anaerobic taken from the interphalangeal joint Complications: none Drains: none Tourniquet: Left arm, 6 minutes, 250 mmHg Findings: Purulent fluid in the interphalangeal joint. Some extrusion of that pus into the dorsal thumb along the proximal phalanx. All of the purulent fluid was removed either with rongeurs or with irrigation. Indications for Procedure: This 64-year-old right-handed woman works as a bakery and deli sales manager. She was bitten by a dog last Diogenes. At that time she was started on clindamycin. Since that time she has received 3 shots of Rocephin. She continues to have significant swelling and redness. She denies any known fever. She is able to move the thumb but it is difficult due to swelling and pain. Tetanus was updated. The patient presented to the emergency room and was admitted. Orthopedics was consulted. She is now on scheduled intravenous antibiotics. I recommended surgical incision and drainage and described this to her. Most of the infection appears dorsal, and I described dorsolateral or midaxial incision. I explained that if there is any flexor tendon involvement I would need to make Carlos type incisions and described those to her, but hopefully all of the infection is dorsal. There could be interphalangeal joint involvement based on tenderness of the joint on examination. I would perform arthrotomy and irrigation if infection is present in the joint. We discussed the potential risk such as sensory nerve dysfunction with possible temporary or permanent numbness on one or both sides of the thumb, stiffness, pain, recurrent infection, scarring, or other potential surgical or anesthetic complications. All of her questions about surgery were answered and she desires to proceed. Procedure in Detail: The patient was identified in the preoperative holding area. The correct left thumb was marked by me. The patient was taken to the operating room where general anesthetic was used. The patient was positioned supine on the operating table. A tourniquet was applied to the upper portion of the limb. The patient remains on scheduled antibiotics so no addtional antibiotics were given. A timeout pr ocedure was performed. The limb was prepared in sterile fashion with Betadine and sterile drapes were applied. The wrist and forearm were exsanguinated with an Esmarch bandage. The tourniquet was inflated. A dorsal lateral incision was made, slightly off the midline over the proximal phalanx of the thumb and extending onto the interphalangeal joint. There is only slight purulent drainage in the subcutaneous tissues. The interphalangeal joint appears swollen and infected. There is a puncture wound from the dog tooth through the extensor tendon, into the interphalangeal joint. There was a septic joint of the interphalangeal connie int. I incised the dorsal capsule, and took cultures of the purulent fluid within the joint. Copious saline irrigation was used. Betadine lavage was used. Additional saline irrigation was used. All of the joint irrigation was performed with a 10 mL syringe and a 20 mL Jelco, to avoid articular injury but to get high-pressure lavage through the joint. The joint was manipulated to make sure all of the purulent fluid was removed. The tourniquet was released. Bovie electrocautery was used carefully for hemostasis. 0.25% bupivacaine with epinephrine was injected into the skin edges and a digital block fashion for additional hemostasis and for pain relief. The incision was closed in a single layer with #3-0 Prolene interrupted sutures. A sterile Xeroform dressing was applied followed by tube gauze. Needle and sponge counts were correct. There were no apparent complications. Vitals Vitals Vital Signs Date Time Temp Pulse Resp B/P (MAP) Pulse Ox O2 Delivery O2 Flow Rate FiO2 06/19/20 11:31 82 20 170/77 96 Room Air 06/19/20 11:16 98.6 98.6 06/19/20 10:45 10 Physical Exam General: Alert, Cooperative Heart: Regular rate Abdomen: Soft Extremities: Other (The left thumb has some resolving puncture type bite wounds over the dorsum mostly over the interphalangeal joint. There is intense erythema, slight circumferential swelling, pain with motion of the interphalangeal joint. The flexor tendon does not seem particularly tender or showing any localized signs of flexor tenosynovitis. Most of the swelling and inflammation and possible fluid collection is dorsal. Sensation is mildly affected. The patient reports some drainage which she drained previously but there is no active drainage at this time.) Skin: Other (Left thumb as above) Labs LABS Laboratory Tests Test 06/18/20 16:37 06/19/20 09:03 06/19/20 10:59 06/19/20 11:50 Glucose (Fingerstick) 96 mg/dL (70-99) 113 mg/dL (70-99) 113 mg/dL (70-99) Sodium Level 143 mmol/L (136-145) Potassium Level 5.0 mmol/L (3.5-5.1) Chloride Level 104 mmol/L (98-107) Carbon Dioxide Level 29 mmol/L (21-32) Anion Gap 10 (6-14) Blood Urea Nitrogen 4 mg/dL (7-20) Creatinine 0.7 mg/dL (0.6-1.0) Estimated GFR (Cockcroft-Gault) 84.0 Glucose Level 139 mg/dL (70-99) Calcium Level 9.5 mg/dL (8.5-10.1) Test 06/19/20 12:23 Glucose (Fingerstick) 156 mg/dL (70-99) Assessment and Plan Assessmemt and Plan Problems Medical Problems: (1) Direct infection of left hand in infectious and parasitic diseases classified elsewhere Status: Acute (2) Dog bite of left thumb with infection Status: Acute (3) Open bite of left hand, initial encounter Status: Acute (4) Pyogenic bacterial arthritis of left hand Status: Acute Comment Review of Relevant I have reviewed the following items zander (where applicable) has been applied. Labs Laboratory Tests Test 06/18/20 12:45 06/18/20 14:18 06/18/20 16:37 06/19/20 09:03 White Blood Count 7.5 x10^3/uL (4.0-11.0) Red Blood Count 4.03 x10^6/uL (3.50-5.40) Hemoglobin 12.2 g/dL (12.0-15.5) Hematocrit 36.4 % (36.0-47.0) Mean Corpuscular Volume 90 fL (79-100) Mean Corpuscular Hemoglobin 30 pg (25-35) Mean Corpuscular Hemoglobin Concent 33 g/dL (31-37) Red Cell Distribution Width 12.9 % (11.5-14.5) Platelet Count 349 x10^3/uL (140-400) Neutrophils (%) (Auto) 70 % (31-73) Lymphocytes (%) (Auto) 20 % (24-48) Monocytes (%) (Auto) 5 % (0-9) Eosinophils (%) (Auto) 4 % (0-3) Basophils (%) (Auto) 1 % (0-3) Neutrophils # (Auto) 5.3 x10^3/uL (1.8-7.7) Lymphocytes # (Auto) 1.5 x10^3/uL (1.0-4.8) Monocytes # (Auto) 0.4 x10^3/uL (0.0-1.1) Eosinophils # (Auto) 0.3 x10^3/uL (0.0-0.7) Basophils # (Auto) 0.0 x10^3/uL (0.0-0.2) Sodium Level 141 mmol/L (136-145) Potassium Level 3.8 mmol/L (3.5-5.1) Chloride Level 104 mmol/L (98-107) Carbon Dioxide Level 27 mmol/L (21-32) Anion Gap 10 (6-14) Blood Urea Nitrogen 10 mg/dL (7-20) Creatinine 0.8 mg/dL (0.6-1.0) Estimated GFR (Cockcroft-Gault) 72.0 BUN/Creatinine Ratio 13 (6-20) Glucose Level 106 mg/dL (70-99) Calcium Level 9.3 mg/dL (8.5-10.1) Total Bilirubin 0.7 mg/dL (0.2-1.0) Aspartate Amino Transf (AST/SGOT) 25 U/L (15-37) Alanine Aminotransferase (ALT/SGPT) 42 U/L (14-59) Alkaline Phosphatase 76 U/L (46-116) C-Reactive Protein, Quantitative 96.3 mg/L (0-3.3) Total Protein 7.2 g/dL (6.4-8.2) Albumin 3.7 g/dL (3.4-5.0) Albumin/Globulin Ratio 1.1 (1.0-1.7) SARS-CoV-2 Antigen (Rapid) Negative (NEGATIVE) Glucose (Fingerstick) 96 mg/dL (70-99) 113 mg/dL (70-99) Test 06/19/20 10:59 06/19/20 11:50 06/19/20 12:23 Glucose (Fingerstick) 113 mg/dL (70-99) 156 mg/dL (70-99) Sodium Level 143 mmol/L (136-145) Potassium Level 5.0 mmol/L (3.5-5.1) Chloride Level 104 mmol/L (98-107) Carbon Dioxide Level 29 mmol/L (21-32) Anion Gap 10 (6-14) Blood Urea Nitrogen 4 mg/dL (7-20) Creatinine 0.7 mg/dL (0.6-1.0) Estimated GFR (Cockcroft-Gault) 84.0 Glucose Level 139 mg/dL (70-99) Calcium Level 9.5 mg/dL (8.5-10.1) Laboratory Tests Test 06/18/20 16:37 06/19/20 09:03 06/19/20 10:59 06/19/20 11:50 Glucose (Fingerstick) 96 mg/dL (70-99) 113 mg/dL (70-99) 113 mg/dL (70-99) Sodium Level 143 mmol/L (136-145) Potassium Level 5.0 mmol/L (3.5-5.1) Chloride Level 104 mmol/L (98-107) Carbon Dioxide Level 29 mmol/L (21-32) Anion Gap 10 (6-14) Blood Urea Nitrogen 4 mg/dL (7-20) Creatinine 0.7 mg/dL (0.6-1.0) Estimated GFR (Cockcroft-Gault) 84.0 Glucose Level 139 mg/dL (70-99) Calcium Level 9.5 mg/dL (8.5-10.1) Test 06/19/20 12:23 Glucose (Fingerstick) 156 mg/dL (70-99) Microbiology 06/18/20 Blood Culture - Preliminary, Resulted NO GROWTH AFTER 1 DAY Medications Current Medications Piperacillin Sod/ Tazobactam Sod 3.375 gm/Sodium Chloride 50 ml @ 100 mls/hr 1X ONCE IV Last administered on 06/18/20at 12:53; Start 06/18/20 at 11:45; Stop 06/18/20 at 12:39; Status DC Psyllium Hydrophilic Mucilloid (Metamucil Fiber Packet) 1 pkt QHS PO ; Start 06/18/20 at 21:00 Sodium Chloride 1,000 ml @ 100 mls/hr Q10H IV Last administered on 06/18/20at 23:51; Start 06/18/20 at 14:00 Ondansetron HCl (Zofran) 4 mg PRN Q4HRS PRN IV NAUSEA/VOMITING; Start 06/18/20 at 14:00 Zolpidem Tartrate (Ambien) 5 mg PRN QHS PRN PO INSOMNIA Last administered on 06/18/20at 20:35; Start 06/18/20 at 14:00 Acetaminophen (Tylenol) 650 mg PRN Q4HRS PRN PO TEMP OVER 100.4F OR MILD PAIN; Start 06/18/20 at 14:00 Enoxaparin Sodium (Lovenox 40mg Syringe) 40 mg Q24H SQ ; Start 06/18/20 at 21:00 Piperacillin Sod/ Tazobactam Sod (Zosyn Per Pharmacy) 1 each PRN DAILY PRN MC SEE COMMENTS; Start 06/18/20 at 14:00 Piperacillin Sod/ Tazobactam Sod 3.375 gm/Sodium Chloride 50 ml @ 100 mls/hr Q6HRS IV Last administered on 06/19/20at 12:34; Start 06/18/20 at 18:00 Vancomycin HCl 1.5 gm/Sodium Chloride 500 ml @ 250 mls/hr 1X ONCE IV Last administered on 06/18/20at 16:00; Start 06/18/20 at 16:00; Stop 06/18/20 at 17:59; Status DC Tramadol HCl (Ultram) 50 mg PRN Q6HRS PRN PO MODERATE PAIN; Start 06/18/20 at 15:30 Fentanyl Citrate (Fentanyl 2ml Vial) 50 mcg PRN Q2HR PRN IVP SEVERE PAIN Last administered on 06/19/20at 06:36; Start 06/18/20 at 15:30 Lorazepam (Ativan) 0.5 mg PRN Q8HRS PRN PO ANXIETY / AGITATION; Start 06/18/20 at 15:45 Lorazepam (Ativan Inj) 0.5 mg PRN Q4HRS PRN IVP ANXIETY / AGITATION; Start 06/18/20 at 15:45 Insulin Human Lispro (HumaLOG) 0-9 UNITS TIDWMEALS SQ Last administered on 06/19/20at 12:38; Start 06/18/20 at 17:00 Dextrose (Dextrose 50%-Water Syringe) 12.5 gm PRN Q15MIN PRN IV SEE COMMENTS; Start 06/18/20 at 15:45 Cetirizine HCl (ZyrTEC) 10 mg QHS PO Last administered on 06/18/20at 20:34; Start 06/18/20 at 21:00 Bupivacaine HCl/ Epinephrine Bitart (Sensorcaine-Epi 0.25%-1:555192 Mpf) 30 ml 1X ONCE INJ Last administered on 06/19/20at 10:18; Start 06/19/20 at 07:30; Stop 06/19/20 at 07:32; Status DC Sevoflurane (Ultane) 60 ml STK-MED ONCE IH ; Start 06/19/20 at 09:07; Stop 06/19/20 at 09:07; Status DC Fentanyl Citrate (Fentanyl 2ml Vial) 100 mcg STK-MED ONCE .ROUTE ; Start 06/19/20 at 09:07; Stop 06/19/20 at 09:08; Status DC Midazolam HCl (Versed) 2 mg STK-MED ONCE .ROUTE ; Start 06/19/20 at 09:08; Stop 06/19/20 at 09:08; Status DC Propofol (Diprivan) 200 mg STK-MED ONCE IV ; Start 06/19/20 at 09:08; Stop 06/19/20 at 09:08; Status DC Dexamethasone Sodium Phosphate (Decadron) 4 mg STK-MED ONCE .ROUTE ; Start 06/19/20 at 09:08; Stop 06/19/20 at 09:08; Status DC Ondansetron HCl (Zofran) 4 mg STK-MED ONCE .ROUTE ; Start 06/19/20 at 09:08; Stop 06/19/20 at 09:08; Status DC Lidocaine HCl (Lidocaine Pf 2% Vial) 5 ml STK-MED ONCE .ROUTE ; Start 06/19/20 at 09:08; Stop 06/19/20 at 09:08; Status DC Ondansetron HCl (Zofran) 4 mg PRN Q6HRS PRN IV NAUSEA/VOMITING; Start 06/19/20 at 10:00; Stop 06/19/20 at 20:00 Fentanyl Citrate (Fentanyl 2ml Vial) 25 mcg PRN Q5MIN PRN IV MILD PAIN 1-3; Start 06/19/20 at 10:00; Stop 06/19/20 at 20:00 Fentanyl Citrate (Fentanyl 2ml Vial) 50 mcg PRN Q5MIN PRN IV MODERATE TO SEVERE PAIN; Start 06/19/20 at 10:00; Stop 06/19/20 at 20:00 Morphine Sulfate (Morphine Sulfate) 1 mg PRN Q10MIN PRN IV SEVERE PAIN 7-10; Start 06/19/20 at 10:00; Stop 06/19/20 at 20:00 Ringer's Solution 1,000 ml @ 30 mls/hr Q24H IV Last administered on 06/19/20at 11:52; Start 06/19/20 at 10:00; Stop 06/19/20 at 21:59 Lidocaine HCl (Xylocaine-Mpf 1% 2ml Vial) 2 ml PRN 1X PRN ID PRIOR TO IV START; Start 06/19/20 at 10:00; Stop 06/19/20 at 20:00 Hydromorphone HCl (Dilaudid) 0.5 mg PRN Q10MIN PRN IV SEV PAIN, Second choice; Start 06/19/20 at 10:00; Stop 06/19/20 at 20:00 Prochlorperazine Edisylate (Compazine) 5 mg PACU PRN PRN IV NAUSEA, MRX1; Start 06/19/20 at 10:00; Stop 06/19/20 at 20:00 Fentanyl Citrate (Fentanyl 2ml Vial) 100 mcg STK-MED ONCE .ROUTE ; Start 06/19/20 at 10:33; Stop 06/19/20 at 10:33; Status DC Sevoflurane (Ultane) 60 ml STK-MED ONCE IH ; Start 06/19/20 at 10:45; Stop 06/19/20 at 10:45; Status DC Vitals/I & O Vital Sign - Last 24 Hours 06/18/20 06/18/20 06/18/20 06/18/20 16:05 19:35 19:40 19:42 Temp 97.8 97.8 Pulse 76 Resp 18 B/P (MAP) 134/62 (86) Pulse Ox 95 O2 Delivery Room Air Room Air Room Air Room Air 06/18/20 06/18/20 06/19/20 06/19/20 20:34 23:42 03:20 06:36 Temp 98.2 98.0 98.2 98.0 Pulse 90 85 Resp 18 20 B/P (MAP) 148/53 (84) 119/59 (79) Pulse Ox 95 95 O2 Delivery Room Air Room Air Room Air Room Air 06/19/20 06/19/20 06/19/20 06/19/20 07:00 07:11 08:50 10:45 Temp 97.9 98.8 97.9 98.8 Pulse 80 88 Resp 19 15 B/P (MAP) 150/70 (96) 160/77 Pulse Ox 96 98 O2 Delivery Room Air Room Air Room Air Mask O2 Flow Rate 10 06/19/20 06/19/20 06/19/20 06/19/20 10:45 11:00 11:16 11:31 Temp 98.0 98.6 98.0 98.6 Pulse 85 91 83 82 Resp 20 20 20 20 B/P (MAP) 164/67 188/84 170/81 170/77 Pulse Ox 100 92 97 96 O2 Delivery Simple Mask Room Air Room Air Room Air O2 Flow Rate 10 Intake and Output 06/18/20 06/18/20 06/19/20 15:00 23:00 07:00 Intake Total 50 ml 540 ml Balance 50 ml 540 ml Justicifation of Admission Dx: Justifications for Admission: Justification of Admission Dx: Yes Comments: CHANDA Yen MD Jun 19, 2020 16:03
[2020-06-19] MEDS: cloNIDine HCL 0.1 MG TABLET PO SCH ×2 (16:51→21:28)
[2020-06-19 19:00] VITALS: BP 123/61
[2020-06-19] MEDS: oxyCODONE/APAP 5/325 1 TAB TABLET PO PRN (20:14)
[2020-06-19] MEDS: CETIRIZINE HCL 10 MG TABLET. PO SCH (21:28)
[2020-06-19] MEDS: ZOLPIDEM 5 MG TABLET. PO PRN (21:28)
[2020-06-19] MEDS: PANTOPRAZOLE 40 MG TABLET.DR. PO SCH (21:28)
[2020-06-19] MEDS: ENOXAPARIN 40 MG/0.4 ML SYRINGE. SQ SCH (21:29)
[2020-06-19] MEDS: PSYLLIUM HUSK (SUGAR FREE) 1 PKT PACKET PO SCH (21:29)
[2020-06-19 23:18] VITALS: BP 118/44
[2020-06-20 03:09] VITALS: BP 101/54
[2020-06-20] MEDS: IV NORMAL SALINE 1000ML BAG 1,000 ML IV SCH ×3 (05:48→19:53)
[2020-06-20] MEDS: PIPERACILLIN/TAZOBACTAM 3.375 GM in IV NORMAL SALINE 50ML 50 ML IV SCH ×4 (05:49→23:36)
[2020-06-20 07:00] VITALS: BP 139/64
[2020-06-20] MEDS: INSULIN LISPRO 300 UNITS/3 ML VIAL. SQ SCH ×3 (08:00→16:59)
[2020-06-20] MEDS: CITALOPRAM 10 MG TABLET. PO SCH (08:24)
[2020-06-20] MEDS: PANTOPRAZOLE 40 MG TABLET.DR. PO SCH ×2 (08:24→19:44)
[2020-06-20] MEDS: ATORVASTATIN CALCIUM 40 MG TABLET. PO SCH (08:24)
[2020-06-20] MEDS: cloNIDine HCL 0.1 MG TABLET PO SCH ×2 (08:24→19:43)
[2020-06-20] MEDS: buPROPion XL 150 MG TAB.ER.24H. PO SCH (08:24)
--- NOTE | 2020-06-20 09:54 | NUR ---
SW following. Discussed with RN, pt from home, room air, cardiac diet, COVID-19 negative, IV abx. Pt had an I&D yesterday. Cultures pending. SW will continue to follow.
[2020-06-20 11:00] VITALS: BP 126/59
[2020-06-20 12:05] LABS: CALCIUM 8.8 mg/dL (8.5-10.1); CREATININE 0.9 mg/dL (0.6-1.0); GFR 62.8; POTASSIUM 3.5 mmol/L (3.5-5.1)
[2020-06-20 15:00] VITALS: BP 132/60
[2020-06-20] MEDS: fentaNYL PF VIAL 100 MCG/2 ML VIAL IVP PRN (16:31)
--- NOTE | 2020-06-20 17:06 | PDOC ---
PROGRESS NOTES Date of Service: DATE: 06/20/20 TIME: 17:04 Chief Complaint Chief Complaint A/P: Left thumb abscess - failed outpatient therapy. given results of cultures will transtion to clinda + cipro and reassess in the am Dog bite - UTD on vaccinations, patient had tetanus. Local wound care. Anxiety - prn lorazepam DM2 - sliding scale HTN - resume home meds HLD - resume home meds Breast ca s/p surgical resection FEN - NPO PPX - lovenox FULL CODE Dispo - inpatient, will wait for recommendations from orthopedic hoshaquille mari in the next 24 hours History of Present Illness History of Present Illness History of Present Illness Ms Gibbons is a 64-year-old female w/ PMHx anxiety, DM2, HTN, HLD, breast ca s/p surgical resection who presents to the emergency room complaining of infection to her left thumb. Patient was bitten by a dog last Wednesday06/14/20. At that time she was started on clindamycin. Since that time she has received 3 shots of Rocephin while taking clindamycin. She continues to have significant swelling and redness. She denies any known fever. She is able to move the thumb but it is difficult due to swelling and pain. Tetanus was updated. Patient was seen in clinic this morning who sent her here for admission. WBC 7.5, Hb 12.2, platelets 349, NA 141, K3.8, BUN 10, CR 0.8, glucose 106, CRP 96.3. Admitted for further care 06/19: No acute events reported overnight, case discussed with nursing staff patient in no acute distress no complaints during my visit patient with no fever only complaint is pain over the affected finger. She is scheduled to go to the OR later in the day Operative Note Operative Note Date of Procedure: June 19, 2020 Pre-Op Diagnosis: * Open bite of left hand, initial encounter S61.452A * Direct infection of left hand in infectious and parasitic diseases classified elsewhere M01.X42 (left thumb infection after dog bite) Post-Op Diagnosis: * Open bite of left hand, initial encounter S61.452A * Direct infection of left hand in infectious and parasitic diseases classified elsewhere M01.X42 * Arthritis due to other bacteria, left hand M00.842 (septic joint left thumb interphalangeal joint) Procedure: Arthrotomy with exploration drainage of the left thumb interphalangeal joint for septic joint arthritis of the interphalangeal joint of the left thumb. CPT 60332 Surgeon: Gino Gracia MD Technical Inspector: BRIGIDA Gonzales Anesthesia: General EBL: 10 mL Specimens Obtained: Swab cultures for aerobic and anaerobic taken from the interphalangeal joint Complications: none Drains: none Tourniquet: Left arm, 6 minutes, 250 mmHg Findings: Purulent fluid in the interphalangeal joint. Some extrusion of that pus into the dorsal thumb along the proximal phalanx. All of the purulent fluid was removed either with rongeurs or with irrigation. 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 She was bitten by a dog last Wednesday. At that time she was started on clindamycin. Since that time she has received 3 shots of Rocephin. She continues to have significant swelling and redness. She denies any known fever. She is able to move the thumb but it is difficult due to swelling and pain. Tetanus was updated. The patient presented to the emergency room and was admitted. Orthopedics was consulted. She is now on scheduled intravenous antibiotics. I recommended surgical incision and drainage and described this to her. Most of the infection appears dorsal, and I described dorsolateral or midaxial incision. I explained that if there is any flexor tendon involvement I would need to make Carlos type incisions and described those to her, but hopefully all of the infection is dorsal. There could be interphalangeal joint involvement based on tenderness of the joint on examination. I would perform arthrotomy and irrigation if infection is present in the joint. We discussed the potential risk such as sensory nerve dysfunction with possible temporary or permanent numbness on one or both sides of the thumb, stiffness, pain, recurrent infection, scarring, or other potential surgical or anesthetic complications. All of her questions about surgery were answered and she desires to proceed. Procedure in Detail: The patient was identified in the preoperative holding area. The correct left thumb was marked by me. The patient was taken to the operating room where general anesthetic was used. The patient was positioned supine on the operating table. A tourniquet was applied to the upper portion of the limb. The patient remains on scheduled antibiotics so no addtional antibiotics were given. A timeout procedure was performed. The limb was prepared in sterile fashion with Betadine and sterile drapes were applied. The wrist and forearm were exsanguinated with an Esmarch bandage. The tourniquet was inflated. A dorsal lateral incision was made, slightly off the midline over the proximal phalanx of the thumb and extending onto the interphalangeal joint. There is only slight purulent drainage in the subcutaneous tissues. The interphalangeal joint appears swollen and infected. There is a puncture wound from the dog tooth through the extensor tendon, into the interphalangeal joint. There was a septic joint of the interphalangeal joint. I incised the dorsal capsule, and took cultures of the purulent fluid within the joint. Copious saline irrigation was used. Betadine lavage was used. Additional saline irrigation was used. All of the joint irrigation was performed with a 10 mL syringe and a 20 mL Jelco, to avoid articular injury but to get high-pressure lavage through the joint. The joint was manipulated to make sure all of the purulent fluid was removed. The tourniquet was released. Bovie electrocautery was used carefully for hemostasis. 0.25% bupivacaine with epinephrine was injected into the skin edges and a digital block fashion for additional hemostasis and for pain relief. The incision was closed in a single layer with #3-0 Prolene interrupted sutures. A sterile Xeroform dressing was applied followed by tube gauze. Needle and sponge counts were correct. There were no apparent complications. Vitals Vitals Vital Signs Date Time Temp Pulse Resp B/P (MAP) Pulse Ox O2 Delivery O2 Flow Rate FiO2 06/20/20 16:31 Room Air 06/20/20 15:00 98.6 78 18 132/60 (84) 97 98.6 06/19/20 10:45 10 Physical Exam General: Alert, Cooperative Heart: Regular rate Abdomen: Soft Extremities: Other (The left thumb has some resolving puncture type bite wounds over the dorsum mostly over the interphalangeal joint. There is intense erythema, slight circumferential swelling, pain with motion of the interphalangeal joint. The flexor tendon does not seem particularly tender or showing any localized signs of flexor tenosynovitis. Most of the swelling and inflammation and possible fluid collection is dorsal. Sensation is mildly affected. The patient reports some drainage which she drained previously but there is no active drainage at this time.) Skin: Other (Left thumb as above) Labs LABS Laboratory Tests Test 06/19/20 20:22 06/20/20 07:34 06/20/20 11:09 06/20/20 11:35 Glucose (Fingerstick) 193 mg/dL (70-99) 112 mg/dL (70-99) 134 mg/dL (70-99) Sodium Level 145 mmol/L (136-145) Potassium Level 3.5 mmol/L (3.5-5.1) Chloride Level 107 mmol/L (98-107) Carbon Dioxide Level 29 mmol/L (21-32) Anion Gap 9 (6-14) Blood Urea Nitrogen 11 mg/dL (7-20) Creatinine 0.9 mg/dL (0.6-1.0) Estimated GFR (Cockcroft-Gault) 62.8 Glucose Level 102 mg/dL (70-99) Calcium Level 8.8 mg/dL (8.5-10.1) Test 06/20/20 16:52 Glucose (Fingerstick) 102 mg/dL (70-99) Assessment and Plan Assessmemt and Plan Problems Medical Problems: (1) Direct infection of left hand in infectious and parasitic diseases classified elsewhere Status: Acute (2) Dog bite of left thumb with infection Status: Acute (3) Open bite of left hand, initial encounter Status: Acute (4) Pyogenic bacterial arthritis of left hand Status: Acute Comment Review of Relevant I have reviewed the following items zander (where applicable) has been applied. Labs Laboratory Tests Test 06/19/20 09:03 06/19/20 10:59 06/19/20 11:50 06/19/20 12:23 Glucose (Fingerstick) 113 mg/dL (70-99) 113 mg/dL (70-99) 156 mg/dL (70-99) Sodium Level 143 mmol/L (136-145) Potassium Level 5.0 mmol/L (3.5-5.1) Chloride Level 104 mmol/L (98-107) Carbon Dioxide Level 29 mmol/L (21-32) Anion Gap 10 (6-14) Blood Urea Nitrogen 4 mg/dL (7-20) Creatinine 0.7 mg/dL (0.6-1.0) Estimated GFR (Cockcroft-Gault) 84.0 Glucose Level 139 mg/dL (70-99) Calcium Level 9.5 mg/dL (8.5-10.1) Test 06/19/20 16:48 06/19/20 20:22 06/20/20 07:34 06/20/20 11:09 Glucose (Fingerstick) 158 mg/dL (70-99) 193 mg/dL (70-99) 112 mg/dL (70-99) 134 mg/dL (70-99) Test 06/20/20 11:35 06/20/20 16:52 Sodium Level 145 mmol/L (136-145) Potassium Level 3.5 mmol/L (3.5-5.1) Chloride Level 107 mmol/L (98-107) Carbon Dioxide Level 29 mmol/L (21-32) Anion Gap 9 (6-14) Blood Urea Nitrogen 11 mg/dL (7-20) Creatinine 0.9 mg/dL (0.6-1.0) Estimated GFR (Cockcroft-Gault) 62.8 Glucose Level 102 mg/dL (70-99) Calcium Level 8.8 mg/dL (8.5-10.1) Glucose (Fingerstick) 102 mg/dL (70-99) Laboratory Tests Test 06/19/20 20:22 06/20/20 07:34 06/20/20 11:09 06/20/20 11:35 Glucose (Fingerstick) 193 mg/dL (70-99) 112 mg/dL (70-99) 134 mg/dL (70-99) Sodium Level 145 mmol/L (136-145) Potassium Level 3.5 mmol/L (3.5-5.1) Chloride Level 107 mmol/L (98-107) Carbon Dioxide Level 29 mmol/L (21-32) Anion Gap 9 (6-14) Blood Urea Nitrogen 11 mg/dL (7-20) Creatinine 0.9 mg/dL (0.6-1.0) Estimated GFR (Cockcroft-Gault) 62.8 Glucose Level 102 mg/dL (70-99) Calcium Level 8.8 mg/dL (8.5-10.1) Test 06/20/20 16:52 Glucose (Fingerstick) 102 mg/dL (70-99) Microbiology 06/19/20 Gram Stain - Final, Resulted 06/19/20 Aerobic and Anaerobic Culture - Preliminary, Resulted 06/18/20 Blood Culture - Preliminary, Resulted NO GROWTH AFTER 2 DAYS Medications Current Medications Piperacillin Sod/ Tazobactam Sod 3.375 gm/Sodium Chloride 50 ml @ 100 mls/hr 1X ONCE IV Last administered on 06/18/20at 12:53; Start 06/18/20 at 11:45; Stop 06/18/20 at 12:39; Status DC Psyllium Hydrophilic Mucilloid (Metamucil Fiber Packet) 1 pkt QHS PO ; Start 06/18/20 at 21:00 Sodium Chloride 1,000 ml @ 100 mls/hr Q10H IV Last administered on 06/20/20at 05:48; Start 06/18/20 at 14:00 Ondansetron HCl (Zofran) 4 mg PRN Q4HRS PRN IV NAUSEA/VOMITING; Start 06/18/20 at 14:00 Zolpidem Tartrate (Ambien) 5 mg PRN QHS PRN PO INSOMNIA Last administered on 06/18/20at 20:35; Start 06/18/20 at 14:00; Stop 06/19/20 at 16:26; Status DC Acetaminophen (Tylenol) 650 mg PRN Q4HRS PRN PO TEMP OVER 100.4F OR MILD PAIN; Start 06/18/20 at 14:00 Enoxaparin Sodium (Lovenox 40mg Syringe) 40 mg Q24H SQ ; Start 06/18/20 at 21:00 Piperacillin Sod/ Tazobactam Sod (Zosyn Per Pharmacy) 1 each PRN DAILY PRN MC SEE COMMENTS; Start 06/18/20 at 14:00 Piperacillin Sod/ Tazobactam Sod 3.375 gm/Sodium Chloride 50 ml @ 100 mls/hr Q6HRS IV Last administered on 06/20/20at 11:52; Start 06/18/20 at 18:00 Vancomycin HCl 1.5 gm/Sodium Chloride 500 ml @ 250 mls/hr 1X ONCE IV Last administered on 06/18/20at 16:00; Start 06/18/20 at 16:00; Stop 06/18/20 at 17:59; Status DC Tramadol HCl (Ultram) 50 mg PRN Q6HRS PRN PO MILD PAIN, 2ND CHOICE; Start 06/18/20 at 15:30 Fentanyl Citrate (Fentanyl 2ml Vial) 50 mcg PRN Q2HR PRN IVP SEVERE PAIN Last administered on 06/20/20at 16:31; Start 06/18/20 at 15:30 Lorazepam (Ativan) 0.5 mg PRN Q8HRS PRN PO ANXIETY / AGITATION; Start 06/18/20 at 15:45 Lorazepam (Ativan Inj) 0.5 mg PRN Q4HRS PRN IVP ANXIETY / AGITATION; Start 06/18/20 at 15:45 Insulin Human Lispro (HumaLOG) 0-9 UNITS TIDWMEALS SQ Last administered on 06/19/20at 17:43; Start 06/18/20 at 17:00 Dextrose (Dextrose 50%-Water Syringe) 12.5 gm PRN Q15MIN PRN IV SEE COMMENTS; Start 06/18/20 at 15:45 Cetirizine HCl (ZyrTEC) 10 mg QHS PO Last administered on 06/19/20at 21:28; Start 06/18/20 at 21:00 Bupivacaine HCl/ Epinephrine Bitart (Sensorcaine-Epi 0.25%-1:560435 Mpf) 30 ml 1X ONCE INJ Last administered on 06/19/20at 10:18; Start 06/19/20 at 07:30; Stop 06/19/20 at 07:32; Status DC Sevoflurane (Ultane) 60 ml STK-MED ONCE IH ; Start 06/19/20 at 09:07; Stop 06/19/20 at 09:07; Status DC Fentanyl Citrate (Fentanyl 2ml Vial) 100 mcg STK-MED ONCE .ROUTE ; Start 06/19/20 at 09:07; Stop 06/19/20 at 09:08; Status DC Midazolam HCl (Versed) 2 mg STK-MED ONCE .ROUTE ; Start 06/19/20 at 09:08; Stop 06/19/20 at 09:08; Status DC Propofol (Diprivan) 200 mg STK-MED ONCE IV ; Start 06/19/20 at 09:08; Stop 06/19/20 at 09:08; Status DC Dexamethasone Sodium Phosphate (Decadron) 4 mg STK-MED ONCE .ROUTE ; Start 06/19/20 at 09:08; Stop 06/19/20 at 09:08; Status DC Ondansetron HCl (Zofran) 4 mg STK-MED ONCE .ROUTE ; Start 06/19/20 at 09:08; Stop 06/19/20 at 09:08; Status DC Lidocaine HCl (Lidocaine Pf 2% Vial) 5 ml STK-MED ONCE .ROUTE ; Start 06/19/20 at 09:08; Stop 06/19/20 at 09:08; Status DC Ondansetron HCl (Zofran) 4 mg PRN Q6HRS PRN IV NAUSEA/VOMITING; Start 06/19/20 at 10:00; Stop 06/19/20 at 20:00; Status DC Fentanyl Citrate (Fentanyl 2ml Vial) 25 mcg PRN Q5MIN PRN IV MILD PAIN 1-3; Start 06/19/20 at 10:00; Stop 06/19/20 at 20:00; Status DC Fentanyl Citrate (Fentanyl 2ml Vial) 50 mcg PRN Q5MIN PRN IV MODERATE TO SEVERE PAIN Last administered on 06/19/20at 16:50; Start 06/19/20 at 10:00; Stop 06/19/20 at 20:00; Status DC Morphine Sulfate (Morphine Sulfate) 1 mg PRN Q10MIN PRN IV SEVERE PAIN 7-10; Start 06/19/20 at 10:00; Stop 06/19/20 at 20:00; Status DC Ringer's Solution 1,000 ml @ 30 mls/hr Q24H IV Last administered on 06/19/20at 11:52; Start 06/19/20 at 10:00; Stop 06/19/20 at 21:59; Status DC Lidocaine HCl (Xylocaine-Mpf 1% 2ml Vial) 2 ml PRN 1X PRN ID PRIOR TO IV START; Start 06/19/20 at 10:00; Stop 06/19/20 at 20:00; Status DC Hydromorphone HCl (Dilaudid) 0.5 mg PRN Q10MIN PRN IV SEV PAIN, Second choice; Start 06/19/20 at 10:00; Stop 06/19/20 at 20:00; Status DC Prochlorperazine Edisylate (Compazine) 5 mg PACU PRN PRN IV NAUSEA, MRX1; Start 06/19/20 at 10:00; Stop 06/19/20 at 20:00; Status DC Fentanyl Citrate (Fentanyl 2ml Vial) 100 mcg STK-MED ONCE .ROUTE ; Start 06/19/20 at 10:33; Stop 06/19/20 at 10:33; Status DC Sevoflurane (Ultane) 60 ml STK-MED ONCE IH ; Start 06/19/20 at 10:45; Stop 06/19/20 at 10:45; Status DC Pantoprazole Sodium (Protonix) 40 mg BID PO Last administered on 06/20/20at 08:24; Start 06/19/20 at 21:00 Clonidine HCl (Catapres) 0.1 mg BID PO Last administered on 06/20/20at 08:24; Start 06/19/20 at 17:00 Bupropion HCl (Wellbutrin Xl) 300 mg DAILY PO Last administered on 06/20/20at 08:24; Start 06/20/20 at 09:00 Citalopram Hydrobromide (CeleXA) 10 mg DAILY PO Last administered on 06/20/20at 08:24; Start 06/20/20 at 09:00 Amlodipine Besylate (Norvasc) 5 mg DAILY PO Last administered on 06/20/20at 08:24; Start 06/19/20 at 17:00 Zolpidem Tartrate (Ambien) 5 mg PRN QHS PRN PO INSOMNIA Last administered on 06/19/20at 21:28; Start 06/19/20 at 16:30 Atorvastatin Calcium (Lipitor) 40 mg DAILY PO Last administered on 06/20/20at 08:24; Start 06/20/20 at 09:00 Oxycodone/ Acetaminophen (Percocet 5/325) 1 tab PRN Q4HRS PRN PO MODERATE- SEVERE PAIN Last administered on 06/19/20at 20:14; Start 06/19/20 at 19:30 Vitals/I & O Vital Sign - Last 24 Hours 06/19/20 06/19/20 06/19/20 06/19/20 17:20 19:00 19:40 20:14 Temp 99.1 99.1 Pulse 86 Resp 16 B/P (MAP) 123/61 (81) Pulse Ox 94 O2 Delivery Room Air Room Air Room Air Room Air 06/19/20 06/19/20 06/19/20 06/20/20 21:28 21:29 23:18 03:09 Temp 98.8 98.6 98.8 98.6 Pulse 86 75 77 Resp 17 18 B/P (MAP) 123/61 118/44 (68) 101/54 (70) Pulse Ox 96 96 O2 Delivery Room Air Room Air Room Air 06/20/20 06/20/20 06/20/20 06/20/20 07:00 08:00 08:24 08:24 Temp 99.3 99.3 Pulse 87 87 87 Resp 20 B/P (MAP) 139/64 (89) 139/64 139/64 Pulse Ox 100 O2 Delivery Room Air Room Air 06/20/20 06/20/20 06/20/20 11:00 15:00 16:31 Temp 98.7 98.6 98.7 98.6 Pulse 74 78 Resp 16 18 B/P (MAP) 126/59 (81) 132/60 (84) Pulse Ox 96 97 O2 Delivery Room Air Room Air Room Air Intake and Output 06/19/20 06/19/20 06/20/20 15:00 23:00 07:00 Intake Total 1450 ml Output Total 10 ml 0 ml Balance 1440 ml 0 ml Justicifation of Admission Dx: Justifications for Admission: Justification of Admission Dx: Yes CHANDA GUTIÉRREZ MD Jun 20, 2020 17:06
[2020-06-20 19:00] VITALS: BP 148/64
[2020-06-20] MEDS: ZOLPIDEM 5 MG TABLET. PO PRN (19:44)
[2020-06-20] MEDS: oxyCODONE/APAP 5/325 1 TAB TABLET PO PRN (19:44)
[2020-06-20] MEDS: CETIRIZINE HCL 10 MG TABLET. PO SCH (19:44)
[2020-06-20] MEDS: ENOXAPARIN 40 MG/0.4 ML SYRINGE. SQ SCH (19:45)
[2020-06-20] MEDS: PSYLLIUM HUSK (SUGAR FREE) 1 PKT PACKET PO SCH (19:45)
[2020-06-20 23:10] VITALS: BP 120/40
[2020-06-21 03:00] VITALS: BP 120/43
[2020-06-21] MEDS: PIPERACILLIN/TAZOBACTAM 3.375 GM in IV NORMAL SALINE 50ML 50 ML IV SCH (05:51)
[2020-06-21] MEDS: IV NORMAL SALINE 1000ML BAG 1,000 ML IV SCH (05:53)
[2020-06-21 07:00] VITALS: BP 125/74
[2020-06-21] MEDS: INSULIN LISPRO 300 UNITS/3 ML VIAL. SQ SCH ×3 (08:00→17:00)
[2020-06-21] MEDS: buPROPion XL 150 MG TAB.ER.24H. PO SCH (08:40)
[2020-06-21] MEDS: ATORVASTATIN CALCIUM 40 MG TABLET. PO SCH (08:41)
[2020-06-21] MEDS: cloNIDine HCL 0.1 MG TABLET PO SCH (08:41)
[2020-06-21] MEDS: PANTOPRAZOLE 40 MG TABLET.DR. PO SCH (08:41)
[2020-06-21] MEDS: CITALOPRAM 10 MG TABLET. PO SCH (08:41)
[2020-06-21] MEDS ORDERED: CIPROFLOXACIN HCL 250 MG TABLET. PO SCH (10:00)
[2020-06-21] MEDS ORDERED: CLINDAMYCIN HCL 150 MG CAPSULE. PO SCH (10:00)
[2020-06-21 11:00] VITALS: BP 128/76
[2020-06-21] MEDS ORDERED: AMOXICILLIN/K CLAV 875/125MG TABLET. PO ONE (11:00)
[2020-06-21 15:00] VITALS: BP 123/68
[2020-06-21] MEDS ORDERED: ATOR40TA59 PO (16:36)
[2020-06-21] MEDS ORDERED: BUPR150T21 PO (16:36)
[2020-06-21] MEDS ORDERED: CITA10TA8 PO (16:36)
[2020-06-21] MEDS ORDERED: AMLO-186 PO (16:36)
[2020-06-21] MEDS ORDERED: CETI10TA16 PO (16:36)
[2020-06-21] MEDS ORDERED: PANT40TA77 PO (16:36)
[2020-06-21] MEDS ORDERED: OXYC1TAB15 PO (16:36)
[2020-06-21] MEDS ORDERED: AMOX1TAB61 PO (16:37)
--- NOTE | 2020-06-21 18:02 | PDOC3 ---
Discharge Summary Visit Information Date of Admission: Jun 18, 2020 Date of Discharge: Jun 21, 2020 Admitting Diagnosis Comment: Left thumb cellulitis - failed outpatient therapy. Will change to zosyn. Add vancomycin for possible MRSA coverage given failure for typical treatment for dog bite. Ortho consulted for I&D consideration Dog bite - UTD on vaccinations, patient had tetanus. Local wound care. Anxiety - prn lorazepam DM2 - sliding scale HTN - resume home meds HLD - resume home meds Breast ca s/p surgical resection Final Diagnosis Problems Medical Problems: (1) Direct infection of left hand in infectious and parasitic diseases classified elsewhere Status: Acute (2) Dog bite of left thumb with infection Status: Acute (3) Open bite of left hand, initial encounter Status: Acute (4) Pyogenic bacterial arthritis of left hand Status: Acute Left thumb abscess - failed outpatient therapy. given results of cultures will transtion to clinda + cipro and reassess in the am Dog bite - UTD on vaccinations, patient had tetanus. Local wound care. Anxiety - prn lorazepam DM2 - sliding scale HTN - resume home meds HLD - resume home meds Breast ca s/p surgical resection Brief Hospital Course Allergies Allergies Coded Allergies Type Severity Reaction Last Updated Verified No Known Drug Allergies 06/18/20 No Vital Signs Vital Signs Date Time Temp Pulse Resp B/P (MAP) Pulse Ox O2 Delivery O2 Flow Rate FiO2 06/21/20 15:00 98.0 72 18 123/68 (86) 96 Room Air 98.0 Lab Results Laboratory Tests Test 06/19/20 20:22 06/20/20 07:34 06/20/20 11:09 06/20/20 11:35 Glucose (Fingerstick) 193 mg/dL (70-99) 112 mg/dL (70-99) 134 mg/dL (70-99) Sodium Level 145 mmol/L (136-145) Potassium Level 3.5 mmol/L (3.5-5.1) Chloride Level 107 mmol/L (98-107) Carbon Dioxide Level 29 mmol/L (21-32) Anion Gap 9 (6-14) Blood Urea Nitrogen 11 mg/dL (7-20) Creatinine 0.9 mg/dL (0.6-1.0) Estimated GFR (Cockcroft-Gault) 62.8 Glucose Level 102 mg/dL (70-99) Calcium Level 8.8 mg/dL (8.5-10.1) Test 06/20/20 16:52 06/20/20 20:08 06/21/20 07:42 06/21/20 11:22 Glucose (Fingerstick) 102 mg/dL (70-99) 167 mg/dL (70-99) 129 mg/dL (70-99) 108 mg/dL (70-99) Test 06/21/20 17:08 Glucose (Fingerstick) 102 mg/dL (70-99) Laboratory Tests Test 06/20/20 20:08 06/21/20 07:42 06/21/20 11:22 06/21/20 17:08 Glucose (Fingerstick) 167 mg/dL (70-99) 129 mg/dL (70-99) 108 mg/dL (70-99) 102 mg/dL (70-99) Brief Hospital Course History of Present Illness Ms Michele is a 64-year-old female w/ PMHx anxiety, DM2, HTN, HLD, breast ca s/p surgical resection who presents to the emergency room complaining of infection to her left thumb. Patient was bitten by a dog last Wednesday06/14/20. At that time she was started on clindamycin. Since that time she has received 3 shots of Rocephin while taking clindamycin. She continues to have significant swelling and redness. She denies any known fever. She is able to move the thumb but it is difficult due to swelling and pain. Tetanus was updated. Patient was seen in clinic this morning who sent her here for admission. WBC 7.5, Hb 12.2, platelets 349, NA 141, K3.8, BUN 10, CR 0.8, glucose 106, CRP 96.3. Admitted for further care 06/19: No acute events reported overnight, case discussed with nursing staff patient in no acute distress no complaints during my visit patient with no fever only complaint is pain over the affected finger. She is scheduled to go to the OR later in the day Operative Note Operative Note Date of Procedure: June 19, 2020 Pre-Op Diagnosis: * Open bite of left hand, initial encounter S61.452A * Direct infection of left hand in infectious and parasitic diseases classified elsewhere M01.X42 (left thumb infection after dog bite) Post-Op Diagnosis: * Open bite of left hand, initial encounter S61.207N * Direct infection of left hand in infectious and parasitic diseases classified elsewhere M01.X42 * Arthritis due to other bacteria, left hand M00.842 (septic joint left thumb interphalangeal joint) Procedure: Arthrotomy with exploration drainage of the left thumb interphalangeal joint for septic joint arthritis of the interphalangeal joint of the left thumb. CPT 30861 Surgeon: Gino Gracia MD Operations And Maintenance Technican: BRIGIDA Gonzales Anesthesia: General EBL: 10 mL Specimens Obtained: Swab cultures for aerobic and anaerobic taken from the interphalangeal joint Complications: none Drains: none Tourniquet: Left arm, 6 minutes, 250 mmHg Findings: Purulent fluid in the interphalangeal joint. Some extrusion of that pus into the dorsal thumb along the proximal phalanx. All of the purulent fluid was removed either with rongeurs or with irrigation. 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 She was bitten by a dog last Diogenes. At that time she was started on clindamycin. Since that time she has received 3 shots of Rocephin. She continues to have significant swelling and redness. She denies any known fever. She is able to move the thumb but it is difficult due to swelling and pain. Tetanus was updated. The patient presented to the emergency room and was admitted. Orthopedics was consulted. She is now on scheduled intravenous antibiotics. I recommended surgical incision and drainage and described this to her. Most of the infection appears dorsal, and I described dorsolateral or midaxial incision. I explained that if there is any flexor tendon involvement I would need to make Carlos type incisions and described those to her, but hopefully all of the infection is dorsal. There could be interphalangeal joint involvement based on tenderness of the joint on examination. I would perform arthrotomy and irrigation if infection is present in the joint. We discussed the potential risk such as sensory nerve dysfunction with possible temporary or permanent numbness on one or both sides of the thumb, stiffness, pain, recurrent infection, scarring, or other potential surgical or anesthetic complications. All of her questions about surgery were answered and she desires to proceed. Procedure in Detail: The patient was identified in the preoperative holding area. The correct left thumb was marked by me. The patient was taken to the operating room where general anesthetic was used. The patient was positioned supine on the operating table. A tourniquet was applied to the upper portion of the limb. The patient remains on scheduled antibiotics so no addtional antibiotics were given. A timeout procedure was performed. The limb was prepared in sterile fashion with Betadine and sterile drapes were applied. The wrist and forearm were exsanguinated with an Esmarch bandage. The tourniquet was inflated. A dorsal lateral incision was made, slightly off the midline over the proximal phalanx of the thumb and extending onto the interphalangeal joint. There is only slight purulent drainage in the subcutaneous tissues. The interphalangeal joint appears swollen and infected. There is a puncture wound from the dog tooth through the extensor tendon, into the interphalangeal joint. There was a septic joint of the interphalangeal joint. I incised the dorsal capsule, and took cultures of the purulent fluid within the joint. Copious saline irrigation was used. Betadine lavage was used. Additional saline irrigation was used. All of the joint irrigation was performed with a 10 mL syringe and a 20 mL Jelco, to avoid articular injury but to get high-pressure lavage through the joint. The joint was manipulated to make sure all of the purulent fluid was removed. The tourniquet was released. Bovie electrocautery was used carefully for hemostasis. 0.25% bupivacaine with epinephrine was injected into the skin edges and a digital block fashion for additional hemostasis and for pain relief. The incision was closed in a single layer with #3-0 Prolene interrupted sutures. A sterile Xeroform dressing was applied followed by tube gauze. Needle and sponge counts were correct. There were no apparent complications. She had a very uneventful hospital stay. None the day of discharge she was evaluated by Dr. Klein. He recommended to continue with antibiotics in the outpatient therapy. We will continue with Augmentin at this time and have her follow-up with Dr. Klein in the outpatient setting. All of her concerns were addressed to the best of my abilities no complaints voiced prior to discharge, signs and symptoms of alarm discussed prior to dismissal, Glycemia well controlled Assessment Assessment IMAGING REPORT Signed PATIENT: ARACELIS MICHELE ACCOUNT: [id number] : 1955 LOCATION: [facility] AGE: 64 SEX: F EXAM STATUS: REG CLI ORD. PHYSICIAN: CHRIS GONZALEZ REASON: AP/LATERAL LEFT THUMB FOR CELLULITIS PROCEDURE: FINGER(S) LEFT EXAM: Left thumb, 3 views. HISTORY: Cellulitis. Dogbite. COMPARISON: None. FINDINGS: 3 views of the left thumb are obtained. There is no fracture, dislocation or subluxation. There is mild first carpometacarpal and first interphalangeal joint spurring. There is moderate to severe second distal interphalangeal joint spurring with a chronic fragmented osteophyte along the palmar aspect of the joint space. There is moderate fifth distal individual joint spurring. There is some soft tissue swelling. No foreign body is seen. IMPRESSION: 1. Left thumb soft tissue swelling. No foreign body or acute osseous finding is seen. 2. 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 Electronically signed by: Agustina Siu MD (06/17/2020 9:47 AM) [id number] Discharge Information Condition at Discharge: Improved Follow Up: Weeks Disposition/Orders: D/C to Home Scheduled Amlodipine Besylate (Amlodipine Besylate) 5 Mg Tablet, 5 MG PO DAILY for dyslipidemia for 30 Days, #30 Prescribed by: CHANDA GUTIÉRREZ MD on 06/21/20 1636 Amoxicillin/Potassium Clav (Augmentin 875-125 Tablet) 1 Each Tablet, 1 TAB PO BID for cellulitis for 7 Days, #14 Ref 0 Prescribed by: CHANDA GUTIÉRREZ MD on 06/21/20 1637 Atorvastatin Calcium (Atorvastatin Calcium) 40 Mg Tablet, 40 MG PO DAILY for dyslipidemia for 30 Days, #30 Prescribed by: CHANDA GUTIÉRREZ MD on 06/21/20 1636 Bupropion Hcl (Bupropion Xl) 150 Mg Tab.er.24h, 300 MG PO DAILY for depression for 30 Days, #60 Prescribed by: CHANDA GUTIÉRREZ MD on 06/21/20 1636 Cetirizine Hcl (Cetirizine Hcl) 10 Mg Tablet, 10 MG PO QHS for antihistamine for 30 Days, #30 Prescribed by: CHANDA GUTIÉRREZ MD on 06/21/20 1636 Citalopram Hydrobromide (Celexa) 10 Mg Tablet, 10 MG PO DAILY for mood for 30 Days, #30 Prescribed by: CHANDA GUTIÉRREZ MD on 06/21/20 1636 Pantoprazole Sodium (Pantoprazole Sodium ) 40 Mg Tablet.dr, 40 MG PO BID for PUD for 30 Days, #60 Prescribed by: CHANDA GUTIÉRREZ MD on 06/21/20 1636 Scheduled PRN Oxycodone/Apap 5-325 (Percocet 5-325 Mg Tablet ) 1 Each Tablet, 1 TAB PO PRN Q4HRS PRN for MODERATE-SEVERE PAIN for 4 Days, #20 Prescribed by: CHANDA GUTIÉRREZ MD on 06/21/20 1636 Justicifation of Admission Dx: Justifications for Admission: Justification of Admission Dx: Yes CHANDA GUTIÉRREZ MD Jun 21, 2020 18:02
--- NOTE | 2020-06-21 19:02 | NUR ---
Patient discharged home today with self care via wheelchair accompany by this RN. Patient is stable, IV removed, prescriptions and discharge paperwork given to patient. Patient verbalized understanding of followup and discharge instruction.
== END 2020-06-21 18:30 | disposition home or self-care (01) | DRG 982 ==
LOC: ER 09:06 → 4 NORTH 13:57
PROVIDERS: ADMIT Internal Medicine; ATTEND Internal Medicine
PROC: 0R9X0ZZ Drainage of Left Finger Phalangeal Joint, Open Approach (ICD-10-PCS; principal; 2020-06-19 09:15)
DX: S61.052A Open bite of left thumb without damage to nail, initial encounter (principal); M01.X42 Direct infection of left hand in infectious and parasitic diseases classified elsewhere; L02.512 Cutaneous abscess of left hand; M00.9 Pyogenic arthritis, unspecified; M00.842 Arthritis due to other bacteria, left hand; E11.9 Type 2 diabetes mellitus without complications; E78.00 Pure hypercholesterolemia, unspecified; E78.5 Hyperlipidemia, unspecified; F41.9 Anxiety disorder, unspecified; I10 Essential (primary) hypertension; L03.012 Cellulitis of left finger; M19.042 Primary osteoarthritis, left hand; Z20.822 Contact with and (suspected) exposure to COVID-19; W54.0XXA Bitten by dog, initial encounter; Z82.49 Family history of ischemic heart disease and other diseases of the circulatory system; Z83.3 Family history of diabetes mellitus; Z85.3 Personal history of malignant neoplasm of breast; Z90.710 Acquired absence of both cervix and uterus; Y93.89 Activity, other specified; Y92.89 Other specified places as the place of occurrence of the external cause; Y99.8 Other external cause status
CPT/HCPCS: 36415; 80048; 80053; 82962; 85025; 86140; 87040; 87071; 87075; 87426; 96365; 96366; 99285; J1100; J1815; J2250; J2405; J2543; J2704; J3010; J3370; J3490; J7030; J7040; J7120; U0003; A4461; G0378